=== PATIENT | female | born 1940 | race Caucasian/White ===

== ENCOUNTER 2016-10-08 05:40 | Inpatient (IN) | payer MEDICARE ==
[~2016-10-08] VITALS: Ht 165.1 cm; Wt 63.2 kg
[2016-10-08] VITALS (18 sets, daily range): BP systolic 84–117; BP diastolic 38–58; PULSE 74–95; RESP 6–18; O2SAT 94–100
[~2016-10-08 05:40] MED LIST: ASCO-294 PO; BETA1TAB19 PO; CALC600T12 PO; CHOL200047 PO; CIPR-231 PO; DOCU-41 PO; FERR-83 PO; FOLI1TAB18 PO; HYDR12.5 PO; OXYB15TA PO; PRED5DRO6 LEFT_EYE; ketorolac BOTH_EYES
[2016-10-08] MEDS ORDERED: CEFTRIAXONE IV ONE (06:00)
[2016-10-08] MEDS ORDERED: CeFAZolin 2 Gm/50 mL D5W IV Premix IV ONE (06:00)
[2016-10-08] MEDS ORDERED: D5W IV ONE (06:00)
[2016-10-08] MEDS ORDERED: metroNIDAZOLE Inj 1,000 MG in IV Premix 1 EACH IV ONE (06:00)
[2016-10-08] MEDS: Lactated Ringer's 1,000 ML IV SCH ×5 (06:03→22:41)
[2016-10-08] MEDS ORDERED: KETO1DRO LEFT_EYE (06:09)
--- NOTE | 2016-10-08 07:22 | PCM.HPANE ---
Patient Data Surgeon Admitting Provider: Attending Provider:Kevyn Clark MD Primary Care Physician:Gagan Vasquez MD Other Provider:Karime Win Anesthesia Reason for Visit Malignant Neoplasm Of Bladder Ht/WT & BMI Height (Feet): 5 Height (Inches): 5 Weight (Kilograms): 61.8 Body Mass Index 22.00 Allergies Coded Allergies: No Known Allergies (Unverified , 05/13/16) Past Anesthesia History Anesthesia History: Denies:: Anesthesia Reactions Diabetes History Hx Diabetes?: No Medications Hypertension Medication: Yes Home Meds Incl Beta Pedro: No Reported Medications Ketorolac Tromethamine/Pf (Acuvail 0.45% Ophth Solution)1 Each Droperette1 Gtt LEFT_EYE QID 10/08/16 Cholecalciferol (Vitamin D3) (Vitamin D3)2,000 Unit Capsule2,000 Unit PO DAILY 10/07/16 Ascorbate Calcium (Vitamin C)500 Mg Gitfxb081 Mg PO DAILY 10/07/16 Vit A/Vit C/Vit E/Zinc/Copper (Preservision Areds Tablet)1 Each Tablet2 Each PO BID 10/07/16 Prednisolone Acetate 5 Ml Drops.susp1 Gtt LEFT_EYE QID 10/07/16 Oxybutynin Chloride ER 15 Mg Tab.er.2415 Mg PO DAILY Ref 0 10/07/16 Hydrochlorothiazide 12.5 Mg Mbfmxwv39.5 Mg PO DAILY 30 Days Ref 0 10/07/16 Folic Acid 1 Mg Tablet1 Mg PO DAILY 30 Days 10/07/16 Ferrous Sulfate 325 Mg Bxtctz092 Mg PO TID 30 Days Ref 0 10/07/16 Docusate Sodium (Colace)100 Mg Lotignm091 Mg PO TID PRN For Constipation Ref 0 10/07/16 Ciprofloxacin (Cipro)500 Mg Ipasfg008 Mg PO BID Ref 0 for 7 day course 10/07/16 Calcium Carbonate (Calcium)600 Mg Xzllsm082 Mg PO DAILY 10/07/16 Discontinued Reported Medications [ketorolac] No Conflict CheckUnknown Dose BOTH_EYES 10/07/16 Calcium Carbonate (Tums)500 Mg Tab.hckd100 Mg PO PRN PRN heart burn 30 Days 05/25/16 Acetaminophen/Diphenhydramine (Tylenol Pm Ex-Strength Caplet)500 Mg-25 Mg Tablet1 Each PO DIRECTED PRN Headache 8/22/16 Hydrochlorothiazide 12.5 Mg Rjawug66.5 Mg PO DAILY Ref 0 03/26/16 Oxybutynin Chloride ER 15 Mg Tab.er.2415 Mg PO DAILY Ref 0 03/26/16 Discontinued Scripts Sodium Chloride (Nevin-128)15 Ml Drops15 Ml OP QID #1 Prov:Catrachito Whitfield MD 08/29/16 History History of ENT Problems?: Yes HEENT History: Positive for:: Glaucoma (using gtts) Hx of Heart Problems?: Yes Cardiovascular History: Positive for:: Heart Murmur (as child) Hypertension Irregular Heartbeat (left bundle branch block) Denies:: AICD Pacemaker Hx of Respiratory Problem?: No Respiratory History: Denies:: Asthma COPD Oxygen Administration Pneumonia Tuberculosis Use of C-PAP Machine Use of Inhalers / NEBS Neurological History: Denies:: CVA Dizziness Headaches Multiple Sclerosis Parkinson's Disease Seizures Hx of GI Problems?: No Gastrointestinal History: Denies:: Cirrhosis Gastroesphageal Reflux Gastrointestinal Bleeding Heartburn Hepatitis Hiatal Hernia Liver Disease Hx of Problems?: Yes Genitourinary History: Denies:: Kidney Stones Other Pertinent History: invasive bladder ca current admission problem, painless hematuria Female Hx: Denies:: Currently (post menopausal) Problems with Breasts? Skin History: Denies:: History Skin Disorders? (skin marked pre-op for ostomy at Wound care) Pressure Ulcers Hx Musculoskeletal Problems?: Yes Musculoskeletal History: Positive for:: Musculoskeletal Trauma (osteopenia) Denies:: Back Injury Fibromyalgia Joint Replacement Hx of Psycho/Social Problems?: No Psycho Social History: Denies:: Anxiety Hx Depression Hx Surgeries?: Yes (RIGHT WRIST) Hx Any Other Health Problems?: Yes Other History: Positive for:: Cancer (bladder current admission problem) Denies:: Thyroid Disease History Blood Transfusions: Positive for:: Accept Blood Products? Denies:: Blood Transfusions Hx Diabetes: No Hx Alcohol Use: NoHx Substance Use: No Smoking Status: Never Smoker Have You Smoked inLast 12 mo: No Stop/Bang Treated for Sleep Apnea?: No Do You Have a CPAP Machine?: No S-Snoring: Do You Snore Loudly: No T-Tired: feel tired, fatigued: No O-Obsered: Observed not breath: No P-Blood Pressure: treated: Yes B- Body Mass Index > 35 kg/m2: No A- Age over 50: Yes N- Neck Large Circumference: No G- Gender Male: No JUN Total Score: 2 JUN Risk Assessment: Low Risk, <3 Yes Risk Assessment Category Category 1A: Patient has history of documented sleep apnea, and HAS NOT received any narcotic, sedative or anesthesia administration during this stay. Category 1B: Patient has history of documented sleep apnea, and HAS received any narcotic , sedative or anesthesia administration during this stay Category 2: Patient has SUSPECTED Obstructive Sleep Apnea, and HAS received any narcotic , sedative or anesthesia administration during this stay. Category 3: Patient has SUSPECTED Obstructive Sleep Apnea and HAS NOT received narcotic, sedative or anesthesia administration during this stay. Category 4: Outpatient in Procedural Areas with known sleep apnea or who screen positive for High Risk via the STOP/BANG questionnaire. Exam Exam Vital Signs Vital Signs Date Time Temp Pulse Resp B/P Pulse Ox O2 Delivery O2 Flow Rate FiO2 10/08/16 06:17 37 81 18 117/50 96 Room Air General Appearance: Oriented X3 HEENT/AIRWAY: MP 2 Lungs: Normal Air Movement Heart: Regular Rate/Rhythm Meds/Labs/Diagnostics Admission Meds Current Medications Lactated Ringer's (Lr) 1,000 ml @ 120 mls/hr Q8H20M IV Last administered on t 06:03; Start 10/08/16 at 05:00; Stop 10/08/16 at 13:19 Plan Impression Patient chart reviewed, patient interviewed and anesthestic plan with risks, benefits, and alternatives discussed, and informed consent obtained. NPO Status: 10/07/16 ASA Physical Status: ASA3 Severe Disease Anesthetic Plan: Epidural Bene/Risks/Altern/Consents: Yes HP Complete Prior to Induction: Yes Carlton Castillo MD Oct 08, 2016 07:21
[2016-10-08] MEDS ORDERED: Atropine 1 mg/mL Inj IVPUSH PRN (07:35)
[2016-10-08] MEDS ORDERED: Ondansetron 2 mg/mL 2 mL Inj IVPUSH PRN ×2 (07:35→14:45)
[2016-10-08] MEDS ORDERED: fentaNYL-PF 50 mCg/mL 2 mL Inj IVPUSH PRN (07:35)
[2016-10-08] MEDS ORDERED: EPHEDrine Sulfate 50 mg/mL Inj IV PRN (07:35)
[2016-10-08] MEDS ORDERED: fentaNYL 2 mCg/mL-Bupivicaine 0.125% 100 mL Premix EPIDURAL ONE (07:53)
[2016-10-08] MEDS: GENTAMICIN IV SCH ×3 (08:30→18:59)
[2016-10-08] MEDS: DEXTROSE 5% IV SCH ×2 (08:30→18:31)
[2016-10-08] MEDS ORDERED: Propofol 10,000 mCg/mL 20 mL Inj ONE (10:06)
[2016-10-08] MEDS ORDERED: Ondansetron 2 mg/mL 2 mL Inj ONE (10:06)
[2016-10-08] MEDS ORDERED: Dexamethasone 4 mg/mL Inj ONE (10:06)
[2016-10-08] MEDS ORDERED: Phenylephrine 10,000 mCg/mL Inj ONE (10:06)
[2016-10-08] MEDS ORDERED: Lactated Ringer's 1,000 ML IV ONE ×4 (10:36→15:53)
[2016-10-08] MEDS ORDERED: Gelatin Sponge SZ 50 TOPICAL ONE (12:35)
--- NOTE | 2016-10-08 14:11 | PCM.ANEP1 ---
Post Anesthesia Phase 1 PACU Phase 1 Assessment Vital Signs Vital Signs Date Time Temp Pulse Resp B/P Pulse Ox O2 Delivery O2 Flow Rate FiO2 10/08/16 14:02 36.6 79 7 102/49 100 Simple Mask 10 10/08/16 06:17 37 81 18 117/50 96 Room Air Anesthetic Administered: GA, Epidural Level of Alertness: Sleepy, easy to arouse Pain: No Nausea or Vomiting: No Oxygen Delivery: Nasal Cannula Lungs: Normal Air Movement Carlton Castillo MD Oct 08, 2016 14:11
--- NOTE | 2016-10-08 14:12 | PCM.ANEP2 ---
Post Anesthesia Evaluation ASA/CMS Post Anesthesia VS in Patient's Normal Range?: Yes Resp Stable; Airway Patent?: Yes CV Function & Hydration Stable: Yes Mental Status Recovered?: Yes Pain control Satisfactory?: Yes N/V Control Satisfactory?: Yes Carlton Castillo MD Oct 08, 2016 14:12
--- NOTE | 2016-10-08 14:32 | PCM.SURGPO ---
Immediate Operative Note Date of Surgery: Oct 08, 2016 Pre Operative Diagnosis Muscle-invasive bladder CA Post Operative Diagnosis Muscle-invasive bladder CA Procedure Anterior pelvic exenteration (radical cystectomy, urethrectomy, total hysterectomy, B/L salpingo-oophorectomy), creation of ileal conduit urinary diversion, and B/L pelvic lymph node dissection Surgeon and Medical Staff Services Manager Surgeon: Kevyn Clark MD Assistants: Alfreda Almanza MD Findings No gross extravesical extension of bladder CA was seen. Anterior pelvic exenteration (radical cystectomy, urethrectomy, total hysterectomy, B/L salpingo -oophorectomy), creation of ileal conduit urinary diversion, and B/L pelvic lymph node dissection were performed. Complications There were no periprocedural complications identified. Surgical Specimen Removed: Yes Specimen sent to Pathology: Yes Surgical Specimen description: Bladder, urethra, uterus, cervix, B/L Fallopian tubes, B/L ovaries, anterior vaginal wall, B/L iliac and obturator pelvic lymph nodes, B/L distal ureteral margins Anesthetic Administered: GA, Epidural Grafts, Implants: Other (B/L urinary diversion stents, SAEID drain, NGT) Output, Estimated Blood Loss: 400 Blood Admin during surgery: No Additional information Patient to be transferred to [facility] when stable. Kevyn Clark MD Oct 08, 2016 14:32
[2016-10-08] MEDS ORDERED: Acetaminophen IV 1,000 MG in IV Premix 1 EACH IV PRN (14:45)
[2016-10-08] MEDS ORDERED: MetoCLOpramide 5 mg/mL 2 mL Inj IVPUSH PRN (14:45)
[2016-10-08] MEDS ORDERED: 0.9% Sodium Chloride 500 ML IV ONE (14:59)
[2016-10-08] MEDS: Sodium Chloride LOK Flush 10 mL Syringe IVFLUSH SCH (18:32)
[2016-10-08] MEDS: SODIUM CHLORIDE 0.9% IV SCH (18:59)
--- NOTE | 2016-10-08 19:18 | PCM.CHPMED ---
Subjective Date of Service: Oct 08, 2016 Primary Physician: Admitting Physician: Kevyn Clark MD Primary Care Physician: Gagan Vasquez MD Attending Physician: Kevyn Clark MD Chief Complaint: Chief Complaint: Consulted for anemia, hypertension, glaucoma History of Present Illness: This patient is a very pleasant 76-year-old female with a history of bladder cancer diagnosed within this year, left bundle branch block, hypertension, osteopenia and glaucoma. She was diagnosed with bladder cancer around February of this year after having painless hematuria since October 2015. She was seen by Dr. 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 She was referred to oncology and underwent 4 months of chemotherapy with plans for eventual radical cystectomy and hysterectomy which was performed earlier today by Dr. Clark with no reported complications. She is on iron for iron deficiency anemia as well as a component of anemia of chronic disease. She just arrived to her room from the PACU and there are plans for one unit blood transfusion after repeat H&H showed decreasing hemoglobin. Currently the patient feels well, pain is controlled. She is on a GAS METER READER pump. She denies any headaches dizziness vision changes. She has recently had an upper respiratory infection with runny nose and cough. She denies any chest pain. She did have some minor shortness of breath after surgery. Postoperative abdominal pain as expected, no rashes or lesions. NG tube is in place Review of Systems: As in history of present illness otherwise 12 point review of systems negative PMH Past Medical History Bladder cancer, known LBBB, glaucoma, She is AB0. She has never had a transfusion. She has had one hospitalization with fracture of the right wrist in 2001. She required pinning and screws. Hypertension, anxiety and osteopenia. Hx Diabetes: No Surgical History Wrist fracture Home Medications Vitamin C, calcium, vitamin D, Colace, iron, folic acid, hydrochlorothiazide, oxybutynin, prednisolone eyedrops, MVI Allergies: Coded Allergies: No Known Allergies (Unverified , 05/13/16) Family History Family History She has 3 daughters who are doing well, one brother of cancer and another from an aneurysm. Father at age 90 of old age mother of pneumonia and leukemia Social History Hx Alcohol Use: NoHx Substance Use: No Smoking Status: Never Smoker Exam Vital Signs Vital Sign - Last Date Time Temp Pulse Resp B/P Pulse Ox O2 Delivery O2 Flow Rate FiO2 10/08/16 17:04 36.2 90 16 88/49 96 Room Air 10/08/16 14:45 10 Additional Information: General: Alert, Oriented X3, pale appearing. NAD Head: Normocephalic, atraumatic . Eyes: LASHA, EOMI, no scleral Icterus Oropharynx: pink moist oral mucosa, NG tube in place Neck: supple, trachea midline, no adenopathy Chest: clear to auscultation B/L, no wheezing rales or rhonchi Heart: Regular rate and rhythm. Normal S1, S2, 2/6 systolic ejection murmur noted Abdomen: soft, bandaged. Bowel sounds are slightly hypoactive. No guarding or rebound. Extremities: no cyanosis, clubbing or edema. No acute joint inflammation. Skin: Normal skin turgor, no nonsurgical wounds or rashes noted Neuro: Cranial nerves II-XII intact, no focal findings. Psych: normal judgement and insight. Lab and Diagnostics Result Diagram: 10/08/16 1515 10/08/16 1515 Assessment & Plan Assessment This is a 76-year-old female status post radical cystectomy and hysterectomy done 10/08/[address] Clark for bladder cancer. She sees Dr. Kay for oncology and has received 4 months of chemotherapy which has been discontinued at this point. The hospital service was consulted for anemia, hypertension, glaucoma. Anemia: -Multifactorial including acute blood loss anemia, anemia of chronic disease, iron deficiency anemia. -I agree with transfusion of one unit red blood cells -Continue iron and vitamin C supplementation when the patient can take by mouth. -Recheck CBC in the morning Bladder cancer: -Status post radical cystectomy and hysterectomy 10/08/2016 -Status post [address] Kay. -Pain control per surgery. Currently on a GAS METER READER -Urostomy education Hypertension: -She is currently hypotensive -She takes hydrochlorothiazide at home. Will hold for now Glaucoma: -Continue home medications, presumed stable Other stable conditions include known LBBB, osteopenia, heart murmur CODE STATUS: Full code DVT prophylaxis: Per surgery, currently held due to recent surgery and anemia. Disposition: Pending hospital course, independent of ADLs at baseline. Thank you for allowing us to participate in the care of this pleasant patient. We will continue to follow along with you. Problems: Candido Harris DO Oct 08, 2016 19:18
[2016-10-08] MEDS ORDERED: 0.9% Sodium Chloride 250 ML ONE (21:18)
[2016-10-08] MEDS: metroNIDAZOLE Inj 500 MG in IV Premix 1 EACH IV SCH ×2 (21:41→21:42)
[2016-10-08] MEDS: PrednisoLONE 1% 5 mL Ophthalmic Suspension LEFT_EYE SCH (21:59)
[2016-10-08] MEDS: KETOROLAC 0.5% LEFT_EYE SCH (21:59)
[2016-10-09] VITALS (9 sets, daily range): BP systolic 100–114; BP diastolic 45–61; PULSE 85–99; RESP 14–20; O2SAT 92–96
[2016-10-09] MEDS: Sodium Chloride LOK Flush 10 mL Syringe IVFLUSH SCH ×3 (00:24→16:30)
[2016-10-09] MEDS: GENTAMICIN IV SCH (02:12)
[2016-10-09] MEDS: SODIUM CHLORIDE 0.9% IV SCH (02:12)
[2016-10-09] MEDS: Lactated Ringer's 1,000 ML IV SCH ×2 (04:54→14:38)
[2016-10-09] MEDS: metroNIDAZOLE Inj 500 MG in IV Premix 1 EACH IV SCH (05:48)
[2016-10-09 06:02] LABS: Mean Corpuscular Hemoglobin 29.5 pg (27.0-35.0); Mean Corpuscular Volume 91.7 fL (81-100)
[2016-10-09] MEDS: KETOROLAC 0.5% LEFT_EYE SCH ×4 (06:29→22:38)
[2016-10-09] MEDS: PrednisoLONE 1% 5 mL Ophthalmic Suspension LEFT_EYE SCH ×4 (06:36→22:38)
--- NOTE | 2016-10-09 08:15 | PCM.PNSURG ---
Subjective Date of Service: Oct 09, 2016 Date of Service: Oct 09, 2016 Subjective: Patient reports occasional mild abdominal incisional pain (well-controlled by epidural LINE ORDERING CLINICIAN), no nausea, no vomiting, no dizziness or light-headedness, has not passed flatus or had a BM yet. Patient has not been OOB yet. Patient has not had hypotension since epidural rate was decreased last night. Patient received 1U pRBC last night. Objective Vital Sign- Last 8 Hours Date Time Temp Pulse Resp B/P Pulse Ox O2 Delivery O2 Flow Rate FiO2 10/09/16 05:22 36.7 88 16 109/61 95 Room Air 10/09/16 04:04 15 95 10/09/16 02:52 36.7 85 16 110/58 10/09/16 00:35 36.7 86 16 100/50 96 Room Air Intake and Output- Last 8 Hour 10/09/16 Cumulative From/Thru 07:00 10/07/16 11:29 - 10/09/16 06:45 Intake Total 1790 ml 4795 ml Output Total 855 ml 1830 ml Balance 935 ml 2965 ml Intake Oral 0 ml 0 ml IV Total 1490 ml 4495 ml Packed Cells 300 ml 300 ml Output Urine Total 350 ml 525 ml Gastric Drainage Total 250 ml 250 ml Drainage Total 255 ml 255 ml Estimated Blood Loss 800 ml Ileal conduit urine output: 350ml last 8hr. shift SAEID drain output: 195ml last 8hr. shift NGT output: 250ml last 8hr. shift General: Alert, Oriented X3, Cooperative, No Acute Distress Neck: Supple Lungs: Normal Air Movement Abdomen: Soft, Appropriately tender, Non-distended, Other (no rebound or guarding) SURGICAL WOUND : Wound Location/Description Dressing clean/dry/intact. Ileal conduit stoma pink, healthy, viable, with urinary diversion stents in bag , draining dark red urine. Wound Drainage Type: SAEID Drain #1 (in place, draining serosang. drainage) Extremities: Other (+SCD boots) Neuro: Normal Speech, Sensation Intact Result Diagram: 10/09/1644110/09/16441 Assessment & Plan Impression POD #1, s/p anterior pelvic exenteration (radical cystectomy, urethrectomy, total hysterectomy, B/L salpingo-oophorectomy), creation of ileal conduit urinary diversion, and B/L pelvic lymph node dissection, afebrile, hemodynamically stable, with resolved hypotension after epidural rate decreased last night, with pain well-controlled by epidural LINE ORDERING CLINICIAN, with good urine output, with labs this AM showing Hct appropriately increased from 21.4 to 24.2 after 1U pRBC transfusion last night and Cr mildly increased to 1.21 Problems: (1) Bladder cancer ICD Code: C67.9 Plan Continue NPO (except for ice chips and sips of water) Continue NGT for now Continue SAEID drain to self-suction Continue IVF Continue epidural LINE ORDERING CLINICIAN, as per anesthesia Encourage incentive spirometry 10x/hr. and cough and deep breathing Q2h while awake Encourage OOB to chair and ambulation with assistance Continue SCD boots Physical therapy consult requested Wound care nursing consult requested (for urostomy care and teaching) Check labs (CBC, BMP) in AM Hospitalist consultation from Dr. Harris appreciated Dr. Almanza (who is on-call) to follow patient over the weekend VTE Prophylaxis: SCDs Resuscitation Status: CPR: Attempt Resuscitation Kevyn Clark MD Oct 09, 2016 08:15
[2016-10-09] MEDS: fentaNYL 2 mCg/mL-Bupiv 0.125% 250 ML in IV Premix 1 EACH EPIDURAL SCH (10:35)
--- NOTE | 2016-10-09 15:07 | PROG NOTE ---
[address] [address] PROGRESS NOTE PATIENT: MACKENZIE EASTMAN : 1940 MR#: [id number] ADMIT: 10/08/2016 JOB ID: [id number] DATE: 10/09/2016 EPIDURAL MANAGEMENT NOTE: SUBJECTIVE: The patient is postop day one from cystectomy and ileal loop diversion. She has a thoracic epidural in place. Apparently overnight the patient had some hypotension. The on-call anesthesiologist was contacted and instructed the RN to decrease epidural rate from 6 to 4. This morning the patient's blood pressure has stabilized. Her epidural is running at a rate of 4 with a demand dose of 1 mL every 30 minutes. The patient appears comfortable and states that she has no incisional pain at rest and only some mild pain along with movement for which she is pushing the demand dose button. She states she has some burning sensation in her upper chest area which is likely due to acid reflux. The patient remains n.p.o. She states that she is satisfied with current pain management. OBJECTIVE: The epidural site per recent RN inspection is clean, dry, and intact, with a little bit of old blood. The infusion is, once again, running at a rate of 4 mL with a 1 mL demand dose. Vital signs are currently within normal limits. IMPRESSION AND PLAN: A 76-year-old female postop day one from cystectomy and ileal loop diversion with a thoracic epidural that appears to be functioning well to control her postoperative pain. Given that she complains of no incisional pain at the moment, I will leave the settings as they are. We will continue to monitor her vital signs to make sure that they remain within normal limits. We will consider weaning the epidural once the patient is capable of taking p.o. without difficulty.
--- NOTE | 2016-10-09 18:16 | PCM.PNMED ---
Subjective Date of Service Oct 09, 2016 Subjective Patient's pain is tolerable, no nausea or vomiting. NG tube in place with dark output. Appropriate response to transfusion. She denies any chest pain or shortness of breath. She has had some reflux. Exam Vital Signs Vital Sign - Last Date Time Temp Pulse Resp B/P Pulse Ox O2 Delivery O2 Flow Rate FiO2 10/09/16 09:55 36.7 93 16 114/58 94 Non-Rebreather 10/08/16 14:45 10 Intake and Output 10/08/16 10/08/16 10/09/16 Cumulative From/Thru 15:00 23:00 07:00 10/07/16 11:29 - 10/09/16 06:45 Intake Total 2955 ml 50 ml 1790 ml 4795 ml Output Total 900 ml 75 ml 855 ml 1830 ml Balance 2055 ml -25 ml 935 ml 2965 ml Intake Oral 0 ml 0 ml 0 ml IV Total 2955 ml 50 ml 1490 ml 4495 ml Packed Cells 300 ml 300 ml Output Urine Total 100 ml 75 ml 350 ml 525 ml Gastric Drainage Total 250 ml 250 ml Drainage Total 255 ml 255 ml Estimated Blood Loss 800 ml 800 ml Exam General: Alert, Oriented X3, NAD, Head: Normocephalic, atraumatic Eyes: LASHA, EOMI, no scleral Icterus Chest: clear to auscultation B/L, no wheezing rales or rhonchi Heart: Regular rate and rhythm. Normal S1-S2, 2/6 systolic murmur noted Abdomen: soft, mild tenderness to palpation. Bowel sounds are hypoactive. No guarding or rebound. Extremities: no cyanosis, clubbing or edema. IVs and Medications Medications Reviewed: Medications were reviewed in detail Lab and Diagnostics Result Diagram: 10/09/162 10/09/16 0442 Assessment & Plan This is a 76-year-old female status post radical cystectomy and hysterectomy done 10/08/[address] Clark for bladder cancer. She sees Dr. Kay for oncology and has received 4 months of chemotherapy which has been discontinued at this point. The hospital service was consulted for anemia, hypertension, glaucoma. Anemia: -Multifactorial including acute blood loss anemia, anemia of chronic disease, iron deficiency anemia. -She has had 1 transfusion 10/08/2016 -Continue iron and vitamin C supplementation when the patient can take by mouth. -Follow blood levels closely. -NG output concerning for bleeding. Bladder cancer: -on 10/08/2016 she had a radical cystectomy, urethrectomy, total hysterectomy, B /L salpingo-oophorectomy, creation of ileal conduit urinary diversion, and B/L pelvic lymph node dissection. No reported complications -Status post [address] Kay. -Pain control per surgery. Currently on a ABSTRACTOR -Urostomy education Hypertension: -hypotensive resolved. -She takes hydrochlorothiazide at home. Will hold for now Glaucoma: -Continue home medications, presumed stable Other stable conditions include known LBBB, osteopenia, heart murmur CODE STATUS: Full code DVT prophylaxis: Per surgery, currently held due to recent surgery and anemia. Disposition: Pending hospital course, independent of ADLs at baseline. VTE Mechanical Devices: Intermittant Pneumatic CD Candido Harris DO Oct 09, 2016 18:16
[2016-10-09] MEDS: Pantoprazole 4 mg/mL 10 mL Inj IVPUSH SCH (18:32)
[2016-10-09] MEDS: Dextrose 5% 0.45% NaCl 1,000 ML IV SCH (22:44)
[2016-10-10] VITALS (7 sets, daily range): BP systolic 114–144; BP diastolic 59–70; PULSE 87–90; RESP 16–18; O2SAT 92–95
[2016-10-10] MEDS: Sodium Chloride LOK Flush 10 mL Syringe IVFLUSH SCH ×3 (00:30→17:37)
[2016-10-10] MEDS: fentaNYL 2 mCg/mL-Bupiv 0.125% 250 ML in IV Premix 1 EACH EPIDURAL SCH (04:46)
--- NOTE | 2016-10-10 05:38 | OP ---
[address] [address] OPERATIVE REPORT PATIENT: MACKENZIE EASTMAN : 1940 MR#: [id number] ADMIT: 10/08/2016 JOB ID: [id number] DATE OF SURGERY: 10/08/2016 PREOPERATIVE DIAGNOSIS(ES): Muscle-invasive bladder cancer. POSTOPERATIVE DIAGNOSIS(ES): Muscle-invasive bladder cancer. PROCEDURE: Anterior pelvic exenteration (radical cystectomy, urethrectomy, total hysterectomy, bilateral salpingo-oophorectomy), creation of ileal conduit urinary diversion, and bilateral pelvic lymph node dissection. SURGEON: Kevyn Clark MD. CARGOMAN: Alfreda Almanza MD. ANESTHESIA: General endotracheal anesthesia and epidural anesthesia. INTRAVENOUS FLUIDS: 2600 mL. ESTIMATED BLOOD LOSS: 400 mL. SPECIMENS: Bladder, urethra, uterus, cervix, bilateral fallopian tubes, bilateral ovaries, anterior vaginal wall, bilateral iliac and obturator pelvic lymph nodes, bilateral distal ureteral margins. DRAINS: Bilateral urinary diversion stents, SAEID drain, nasogastric tube. COMPLICATIONS: None. CONDITION: Stable. FINDINGS: No gross extravesical extension of bladder cancer was seen. Anterior pelvic exenteration (radical cystectomy, urethrectomy, total hysterectomy, bilateral salpingo-oophorectomy), creation of ileal conduit urinary diversion and bilateral pelvic lymph node dissection were performed. INDICATIONS: The patient is a 76-year-old female with muscle-invasive bladder cancer, status post completion of neoadjuvant chemotherapy. The patient now presents for anterior pelvic exenteration (including radical cystectomy, urethrectomy, total hysterectomy and bilateral salpingo-oophorectomy), bilateral pelvic lymph node dissection and creation of ileal conduit urinary diversion. Of note, the skilled assistance of Dr. Alfreda Almanza was necessary for the successful completion of the case. He was essential for proper visualization and for wound closure during the case. DESCRIPTION OF PROCEDURE: The patient was brought to the operating room and placed supine on the operating room table. The patient was given ceftriaxone, gentamicin and Flagyl IV antibiotics. Sequential compression device boots were placed. General endotracheal anesthesia and epidural anesthesia were administered. A nasogastric tube was placed by Anesthesia. Arterial line was placed by Anesthesia. All extremities and pressure points were well padded. The patient was placed in dorsal lithotomy position. The patient was prepped and draped in a standard surgical fashion, specifically the abdomen, bilateral flank, groin, perineum, bilateral thighs and vagina were shaved, prepped and draped in a standard surgical fashion. A 22-Guatem[place] Jensen catheter was placed under sterile conditions. Jensen catheter balloon was inflated with 10 mL sterile water. Jensen catheter was placed to straight drainage. A midline abdominal incision was made sharply with a #10 blade just to the left of the umbilicus. The incision was brought from the pubic symphysis and to the left of the umbilicus to about 2-3 cm superior to the level of the umbilicus. The incision was made sharply through the skin and subcutaneous tissue. The incision was carried through Chelsea's fascia down to rectus fascia using Bovie electrocautery. The rectus fascia was incised in the midline. Then, the muscle layer was split and the peritoneum was identified. Hemostasis was achieved using Bovie electrocautery. The peritoneal cavity was entered sharply. The urachus was dissected free. The urachus was ligated and divided and then clamped. Then, the peritoneal contents were inspected and there was no obvious evidence of metastatic spread. Palpation was performed and no occult metastatic disease was palpated in the abdomen or pelvis. The peritoneum lateral to the bladder was incised. The distal portions of the left and right ureters were identified and dissected free, and the distal margin of the left distal ureter was sent for frozen section, which returned negative. The ureter had been ligated and divided near the bladder. An identical procedure was performed on the right side. The distal margin of the right distal ureter was sent for frozen section, which returned negative. The ureter had been ligated and divided near the bladder. Thus, the distal margins of both left and right distal ureters were sent to Pathology for frozen section and both came back negative on frozen section. The Bookwalter retractor had been placed upon entrance into the peritoneal cavity. The bilateral ovarian vessels were identified, ligated and divided. The urachus had been dissected free and was clamped, and the bladder was dissected in a "V" fashion. The bowel was packed superiorly. Bilateral salpingo-oophorectomy was performed by dissecting out bilateral ovaries and bilateral fallopian tubes. The bilateral ovarian vessels had already been ligated and divided using LigaSure. The bladder was dissected off the peritoneal reflection. Bilateral superior vesical pedicles were ligated and divided using endovascular ANNAMARIE stapler. Bilateral inferior vesical pedicles were ligated and divided using endovascular ANNAMARIE stapler. The rectosigmoid was retracted posteriorly and superiorly. An incision was created in the cul-de-sac, and the vaginal wall was mobilized off of the rectosigmoid colon. A sponge stick was placed in the vagina to facilitate identification of the vagina. Bilateral cardinal ligaments were ligated and divided using LigaSure. Cautery was used to incise the vagina. The posterior dissection was completed, and the anterior dissection was begun. Endopelvic fascia was incised. The pubourethral suspensory ligaments were divided. The dorsal vein of the clitoris was ligated and divided. The urethra was dissected from under the dorsal vein, so that the only remaining attachments of the specimen were the urethral meatus and a small portion of the vagina. Then, a retractor was used to split the labia. The labia was split and the urethral meatus was circumscribed using Bovie electrocautery to complete the urethrectomy. The remaining portion of the vagina was incised, and the distal urethra was dissected out. The uterus, anterior vagina, cervix, bilateral fallopian tubes and bilateral ovaries were taken with the specimen with the bladder and the urethra. The vaginal flap was closed in a longitudinal fashion using a 2-0 Vicryl suture in a running fashion. The specimen was sent to Pathology for permanent specimen. Of note, the Jensen catheter had been removed prior to removal of the specimen at the point of dissection of the urethra. Excellent hemostasis was achieved using Bovie electrocautery. There was no evidence for rectal or vascular injuries. Attention was then paid to obturator and iliac pelvic lymph nodes on the left side where pelvic lymphadenectomy was performed from the level of the obturator ring proximally to the bifurcation of the common iliac arteries. There was no obvious metastatic spread seen. Lymphadenectomy was performed using clips. The obturator nerve and vessels were easily seen and preserved. An identical procedure was performed on the right side with no evidence of obvious metastatic spread seen. Left and right obturator and iliac pelvic lymph nodes were sent to Pathology for permanent specimen. Attention was then paid towards the loop of ileum. Approximately 15 cm from the ileocecal valve a portion of ileum was dissected and marked with 3-0 silk sutures. There appeared to be a nice arcade of blood supply to this portion of the bowel. An approximately 15 cm segment of ileal conduit was measured, and the mesentery of the distal and proximal portions of the bowel segment was dissected free more on the distal portion to allow it to come through the urostomy tract and through the abdominal cavity later on. The bowel anastomosis was performed using ANNAMARIE and TA staplers with a typical [id number] anastomosis. The crotch of the bowel anastomosis was secured using 2-0 silk sutures. There appeared to be a nice wide-open bowel anastomosis and the mesenteric defect was closed using 2-0 silk sutures. There appeared to be good blood supply to the ileal conduit and the bowel. The staple line of the stoma end of the ileal conduit was removed using Perkins scissors. The loop was thoroughly irrigated prior to closure of the loop and there appeared to be good hemostasis and an excellent blood supply. The ileal conduit appeared to be healthy and pink. The left ureter was brought underneath the sigmoid colon and appeared to have a nice gentle curve to it and was not twisted. The tip of the left ureter was resected to freshen the tip and partially spatulated using a Oliver scissors. The bowel anastomosis to the left ureter was performed using a running 4-0 Vicryl suture. Prior to completion of the closure, a single-J urinary diversion stent was placed up the left ureter and into the kidney on the left side and appeared to be well placed. This was performed and then the guidewire was removed. This was performed through the loop and an identical procedure was performed on the right side. The left ureter was placed on the left side of the loop and the right ureter was placed on the right side of the loop approximately 1 inch from the butt end of the loop. There was good irrigation of fluid through the stents and the stents appeared to be in good position. The wound was thoroughly irrigated using sterile water irrigation and had been thoroughly irrigated several times earlier during the case including after the specimen was removed. Good hemostasis was seen. Some areas of bleeding were taken care of using [id number] 2-0 Vicryl sutures and Gelfoam was placed in the pelvic fossa. The Bookwalter retractor was removed. The bowel was replaced into the peritoneal cavity. The omentum was replaced. The bowel was seen to be well preserved. Then, the urostomy site was identified in the area where it was previously marked by the urostomy nurse preoperatively. A 1-inch opening was made in a round fashion with a #10 blade in the skin for placement of the ileal conduit. The stoma appeared to be in adequate position. The fat and the surrounding tissue were removed using Bovie electrocautery. A cruciate incision was made in the fascia approximately 1 inch in size. The fascia was then opened from the inside and the ileal conduit and bilateral stents were pulled through. The ileal conduit appeared again to be healthy in appearance and nice and pink with a good blood supply. The fascia of the conduit tract was closed using interrupted 2-0 Vicryl sutures and several separate 2-0 Vicryl sutures were used to secure the conduit, anchoring it to the fascia to prevent any herniation in the future. Also, the conduit mesentery appeared to be nice and healthy in appearance without being twisted. The bowel anastomosis was anterior to the conduit and appeared to be in a good position as well. The conduit was everted using everting sutures of 2-0 Vicryl. Then, the approximation of the conduit to the skin was made using 3-0 Vicryl simple interrupted sutures. Bilateral urinary diversion stents were secured to the stoma using chromic sutures. A SAEID drain was placed into the pelvis on the left side and was secured to the skin using a 2-0 nylon drain suture. The rectus fascia was closed using 0 loop PDS sutures x2 in a running fashion from each corner toward the middle and then tied to each other. Chelsea's fascia was reapproximated in a running fashion using 3-0 chromic suture. The skin was reapproximated using jacy. The skin was cleaned and dried. A urostomy appliance was placed on the ileal conduit stoma with bilateral urinary diversion stents placed into the bag. A saline-soaked vaginal pack was placed. Sterile dressings were applied. The SAEID drain was placed to self suction. The nasogastric tube was left in place. The patient was awakened from general anesthesia and extubated in the operating room. The patient was transferred to the recovery room in stable condition. The patient tolerated the procedure well. MADALYN
[2016-10-10 05:44] LABS: Mean Corpuscular Hemoglobin 29.4 pg (27.0-35.0); Mean Corpuscular Volume 93.4 fL (81-100)
[2016-10-10] MEDS ORDERED: 0.9% Sodium Chloride 250 ML IV ONE (07:50)
[2016-10-10] MEDS: Dextrose 5% 0.45% NaCl 1,000 ML IV SCH ×3 (09:07→19:51)
[2016-10-10] MEDS: Pantoprazole 4 mg/mL 10 mL Inj IVPUSH SCH ×2 (09:12→17:37)
[2016-10-10] MEDS: PrednisoLONE 1% 5 mL Ophthalmic Suspension LEFT_EYE SCH ×4 (09:13→22:31)
[2016-10-10] MEDS: KETOROLAC 0.5% LEFT_EYE SCH ×4 (09:13→22:30)
--- NOTE | 2016-10-10 09:19 | PROG NOTE ---
[address] [address] PROGRESS NOTE PATIENT: MACKENZIE EASTMAN : 1940 MR#: [id number] ADMIT: 10/08/2016 JOB ID: [id number] DATE: SUBJECTIVE: Postop day two, anterior exenteration and ileal conduit diversion. Vital signs are stable. The patient is afebrile. Pain control is good. The nasogastric tube is draining dark brown fluid. Urine is blood tinged. Aditya-Acuña drain is serosanguineous. Urine output is adequate. LABORATORY: Electrolytes within normal limits. Hemoglobin is again depressed with a hematocrit of 21.3. I will plan on giving her an additional 2 units of packed red blood cells today. PHYSICAL EXAMINATION: On examination, chest is clear. The abdomen is soft. No bowel sounds are present. Her stoma appears pink and healthy. Incision is clean and dry. IMPRESSION: Good progress postop. PLAN: Slow ambulation, n.p.o. until passing gas.
--- NOTE | 2016-10-10 14:42 | PROG NOTE ---
[address] [address] PROGRESS NOTE PATIENT: MACKENZIE EASTMAN : 1940 MR#: [id number] ADMIT: 10/08/2016 JOB ID: [id number] DATE: 10/10/2016 SUBJECTIVE: A 76-year-old female, postop day two, status post diverting loop ileostomy with anterior pelvic exoneration. The patient currently has a thoracic epidural in place running bupivacaine 0.125% with 2 mcg/mL of fentanyl at a rate of 4 mL an hour. She has a bolus dose of 1 mg which she can utilize every 30 minutes. On a visual analog scale, she complained of 1/10 generalized abdominal pain and is currently happy with her pain control. She had not passed gas. She has an NG tube in place and thus remains n.p.o. She has not ambulated although she has sat up at bedside. She was receiving blood this morning at her bedside for her anemia. OBJECTIVE: Patient remained afebrile with vital signs stable. White count today was 11.7, hemoglobin was 6.7, and platelets were 257. She is not currently on any anticoagulants. Her epidural site was clean, dry and intact and she has no focal neurological deficits. ASSESSMENT AND PLAN: The patient is currently recovering well given her age and the extent of the surgery. She is having excellent postoperative pain control and we will continue her epidural unchanged and continue assessing her daily.
--- NOTE | 2016-10-10 17:09 | PCM.PNMED ---
Subjective Date of Service Oct 10, 2016 Subjective Feeling a little better today. She has family present at bedside. No chest pain, nausea vomiting. NG tube still in place. No flatulence or bowel movement. Exam Vital Signs Vital Sign - Last Date Time Temp Pulse Resp B/P Pulse Ox O2 Delivery O2 Flow Rate FiO2 10/10/16 13:31 37.1 90 16 138/70 10/10/16 05:42 93 Room Air 10/08/16 14:45 10 Intake and Output 10/09/16 10/09/16 10/10/16 Cumulative From/Thru 15:00 23:00 07:00 10/07/16 11:29 - 10/10/16 06:44 Intake Total 1488 ml 0 ml 6283 ml Output Total 940 ml 810 ml 3580 ml Balance 548 ml -810 ml 2703 ml Intake Oral 60 ml 0 ml 60 ml IV Total 1428 ml 5923 ml Packed Cells 300 ml Output Urine Total 525 ml Gastric Drainage Total 450 ml 150 ml 850 ml Drainage Total 490 ml 660 ml 1405 ml Estimated Blood Loss 800 ml Exam General: Alert, Oriented X3, NAD Head: Normocephalic, atraumatic Eyes: LASHA, EOMI, no scleral Icterus Chest: clear to auscultation B/L, no wheezing rales or rhonchi Heart: Regular rate and rhythm. Normal S1, S2, 2/6 systolic ejection murmur Abdomen: soft, mild tenderness to palpation, bowel sounds are hypoactive. No guarding or rebound. Extremities: no cyanosis, clubbing or edema. IVs and Medications Medications Reviewed: Medications were reviewed in detail Lab and Diagnostics Result Diagram: 10/10/16 1147 10/10/16 0444 Assessment & Plan This is a 76-year-old female status post radical cystectomy and hysterectomy done 10/08/[address] Clark for bladder cancer. She sees Dr. Kay for oncology and has received 4 months of chemotherapy which has been discontinued at this point. The hospital service was consulted for anemia, hypertension, glaucoma. Anemia: -Multifactorial including acute blood loss anemia, anemia of chronic disease, iron deficiency anemia. -She has had 1 transfusion 10/08/2016, will transfuse another unit today. -Continue iron and vitamin C supplementation when the patient can take by mouth. -Follow blood levels closely. -NG output concerning for bleeding. At some point may need to consider an EGD. Continue Protonix Bladder cancer: -on 10/08/2016 she had a radical cystectomy, urethrectomy, total hysterectomy, B /L salpingo-oophorectomy, creation of ileal conduit urinary diversion, and B/L pelvic lymph node dissection. No reported complications -Status post [address] Kay. -Pain control per surgery. Currently on a IDENTITY ACCESS MANAGEMENT ARCHITECT -Urostomy education Hypertension: -hypotensive resolved. -She takes hydrochlorothiazide at home. Will hold for now Glaucoma: -Continue home medications, presumed stable Other stable conditions include known LBBB, osteopenia, heart murmur CODE STATUS: Full code DVT prophylaxis: Per surgery, currently held due to recent surgery and anemia. Disposition: Pending hospital course, independent of ADLs at baseline. VTE Prophylaxis: SCDs VTE Mechanical Devices: Intermittant Pneumatic CD Resuscitation Status: CPR: Attempt Resuscitation Candido Harris DO Oct 10, 2016 17:09
[2016-10-11] VITALS (8 sets, daily range): BP systolic 143–156; BP diastolic 48–70; PULSE 80–86; RESP 16–18; O2SAT 91–94
[2016-10-11] MEDS: Sodium Chloride LOK Flush 10 mL Syringe IVFLUSH SCH ×3 (00:30→16:24)
[2016-10-11] MEDS: fentaNYL 2 mCg/mL-Bupiv 0.125% 250 ML in IV Premix 1 EACH EPIDURAL SCH (03:43)
[2016-10-11] MEDS: Dextrose 5% 0.45% NaCl 1,000 ML IV SCH ×3 (03:48→16:46)
[2016-10-11 05:46] LABS: Mean Corpuscular Hemoglobin 29.1 pg (27.0-35.0)
[2016-10-11] MEDS: PrednisoLONE 1% 5 mL Ophthalmic Suspension LEFT_EYE SCH ×4 (06:38→22:12)
[2016-10-11] MEDS: KETOROLAC 0.5% LEFT_EYE SCH ×4 (06:42→22:14)
[2016-10-11] MEDS: Pantoprazole 4 mg/mL 10 mL Inj IVPUSH SCH ×2 (07:33→16:24)
[2016-10-11] MEDS ORDERED: KCl 40 mEq/D5W 500 mL 40 MEQ in IV Premix 500 EACH IV ONE (07:35)
--- NOTE | 2016-10-11 12:49 | PROG NOTE ---
[address] [address] PROGRESS NOTE PATIENT: MACKENZIE EASTMAN : 1940 MR#: [id number] ADMIT: 10/08/2016 JOB ID: [id number] DATE: 10/11/2016 SUBJECTIVE: The patient is postop day three anterior exenteration with ileal conduit diversion. The patient received 2 units of packed red blood cells yesterday and her hematocrit has come up nicely to 26.6. Chemistry: Potassium has dropped to 3.2. I will add some KCl to her IV. Creatinine is within normal limits. OBJECTIVE: On examination, chest is clear. Abdomen is soft. Wound is dry. Still appears healthy. Urine output good. Color is clearing. Urine output remains good at 1700 mL total yesterday. SAEID drainage is acceptable at 160 mL. NG suction is diminishing, still dark brown. Daily weights are pending. IMPRESSION: Postoperative day three status post anterior exenteration with ileal conduit diversion. Good progress.
--- NOTE | 2016-10-11 15:56 | PCM.PNMED ---
Subjective Date of Service Oct 11, 2016 Subjective denies any new issues/complaints. no abd pain Exam Vital Signs Vital Sign - Last Date Time Temp Pulse Resp B/P Pulse Ox O2 Delivery O2 Flow Rate FiO2 10/11/16 14:55 36.7 84 16 152/48 91 Room Air 10/08/16 14:45 10 Intake and Output 10/10/16 10/10/16 10/11/16 Cumulative From/Thru 15:00 23:00 07:00 10/07/16 11:29 - 10/11/16 06:37 Intake Total 375 ml 0 ml 1119 ml 7777 ml Output Total 1350 ml 1000 ml 5930 ml Balance 375 ml -1350 ml 119 ml 1847 ml Intake Oral 0 ml 0 ml 60 ml IV Total 35 ml 1119 ml 7077 ml Packed Cells 340 ml 640 ml Output Urine Total 0 ml 525 ml Gastric Drainage Total 125 ml 0 ml 975 ml Drainage Total 1225 ml 1000 ml 3630 ml Estimated Blood Loss 800 ml General: Alert, Cooperative, No Acute Distress Eyes: Scleral Anicteric Mouth: Mucous Membr Moist/[place] Neck: Supple Chest & Lungs: Chest Wall Normal, Clear to auscultation & percussion Cardiovascular: Regular Rate/Rhythm Abdomen: Non-tender, Non-distended, Soft, Other (ng tube in place) Extremities: No cyanosis/clubbing/edma bilat Neurological: Grossly Neurologically Intact, Normal Speech IVs and Medications Medications Reviewed: Medications were reviewed in detail Lab and Diagnostics Result Diagram: 10/11/16 1325 10/11/16 0532 Assessment & Plan 76-year-old female status post radical cystectomy and hysterectomy done [address] Clark for bladder cancer. She sees Dr. Kay for oncology and has received 4 months of chemotherapy which has been discontinued at this point. The hospital service was consulted for anemia, hypotension, glaucoma. # Anemia: -Multifactorial including acute blood loss anemia, anemia of chronic disease, iron deficiency anemia. -She has had 2 units of PRBC transfusion so far -Continue iron and vitamin C supplementation when the patient can take by mouth. -Follow blood levels closely. -NG output concerning for bleeding. -consider further GI consult for possible EGD. -Continue Protonix # Bladder cancer: -post radical cystectomy, urethrectomy, total hysterectomy, B/L salpingo- oophorectomy, creation of ileal conduit urinary diversion, and B/L pelvic lymph node dissection on 10/08/16 -Status post [address] Kay. -post-op management and pain control per primary urology service # Acute hypokalemia - replete and f/u # Hypertension, chronic -hypotensive episode resolved. -She takes hydrochlorothiazide at home. Will hold for now # Glaucoma: -Continue home medications, presumed stable # Other stable conditions include known LBBB, osteopenia, heart murmur Dispo: pending stable h/h and per primary urology service VTE Prophylaxis: SCDs VTE Mechanical Devices: Intermittant Pneumatic CD Resuscitation Status: CPR: Attempt Resuscitation Valentino Concepcion Oct 11, 2016 15:56
[2016-10-12] VITALS (9 sets, daily range): BP systolic 123–153; BP diastolic 61–79; PULSE 78–91; RESP 16–18; O2SAT 92–94
[2016-10-12] MEDS: Sodium Chloride LOK Flush 10 mL Syringe IVFLUSH SCH ×3 (00:30→18:22)
[2016-10-12] MEDS: Dextrose 5% 0.45% NaCl 1,000 ML IV SCH (01:57)
[2016-10-12 05:44] LABS: Mean Corpuscular Hemoglobin 29.7 pg (27.0-35.0); Mean Corpuscular Volume 92.4 fL (81-100)
[2016-10-12] MEDS: PrednisoLONE 1% 5 mL Ophthalmic Suspension LEFT_EYE SCH ×4 (05:54→22:07)
[2016-10-12] MEDS: KETOROLAC 0.5% LEFT_EYE SCH ×5 (06:12→23:15)
--- NOTE | 2016-10-12 07:35 | PCM.PNSURG ---
Subjective Date of Service: Oct 12, 2016 Date of Service: Oct 12, 2016 Subjective: Patient reports occasional mild abdominal incisional pain (well-controlled by epidural SENIOR MARKETING MANAGER), no nausea, no vomiting, passed flatus last night, has not had a BM yet. Patient is being followed by physical therapy and wound care nurse. Patient ambulated several steps with physical therapy and sat on the side of the bed yesterday. Objective Vital Sign- Last 8 Hours Date Time Temp Pulse Resp B/P Pulse Ox O2 Delivery O2 Flow Rate FiO2 10/12/16 05:20 36.8 78 18 147/71 94 Room Air 10/12/16 01:43 18 94 Intake and Output- Last 8 Hour 10/12/16 Cumulative From/Thru 07:00 10/07/16 11:29 - 10/12/16 05:18 Intake Total 1075 ml 9931 ml Output Total 100 ml 8210 ml Balance 975 ml 1721 ml Intake Oral 60 ml IV Total 1075 ml 9231 ml Packed Cells 640 ml Output Urine Total 100 ml 2175 ml Stool Total 575 ml Gastric Drainage Total 975 ml Drainage Total 3685 ml Estimated Blood Loss 800 ml Ileal conduit urine output: 1120ml last 8hr. shift SAEID drain output: 55/65ml last 2 8hr. shifts General: Alert, Oriented X3, Cooperative, No Acute Distress Neck: Supple Lungs: Normal Air Movement Abdomen: Soft, Appropriately tender, Non-distended, Other (no rebound or guarding) SURGICAL WOUND : Wound Location/Description Dressing clean/dry/intact. Ileal conduit stoma pink, healthy, viable, with urinary diversion stents in bag , draining [id number] urine. Wound Drainage Type: SAEID Drain #1 (in place, draining serosang. drainage) Neuro: Normal Speech, Sensation Intact Result Diagram: 10/12/1651410/12/16514 Assessment & Plan Impression POD #4, s/p anterior pelvic exenteration (radical cystectomy, urethrectomy, total hysterectomy, B/L salpingo-oophorectomy), creation of ileal conduit urinary diversion, and B/L pelvic lymph node dissection, afebrile, hemodynamically stable, with pain well-controlled by epidural SENIOR MARKETING MANAGER, with excellent urine output, with decreasing SAEID drain output, s/p 1U pRBC transfusion on 10/08-10/09, s/p 1U pRBC transfusion on 10/10, with labs this AM showing stable Hct (26.8) and normal Cr (0.49), s/p passage of flatus last night Problems: (1) Bladder cancer ICD Code: C67.9 Plan D/C NGT Start sips of clears Continue SAEID drain to self-suction Continue IVF Continue epidural SENIOR MARKETING MANAGER, as per anesthesia Encourage incentive spirometry 10x/hr. and cough and deep breathing Q2h while awake Encourage OOB to chair and ambulation with assistance Continue SCD boots Continue physical therapy Continue urostomy care and teaching by wound care nurse Check labs (CBC, BMP) in AM Hospitalist follow-up from Dr. Concepcion appreciated VTE Prophylaxis: SCDs Resuscitation Status: CPR: Attempt Resuscitation Kevyn Clark MD Oct 12, 2016 07:35
[2016-10-12] MEDS ORDERED: KCl 40 mEq/D5W 500 mL 40 MEQ in IV Premix 500 EACH IV ONE (07:40)
[2016-10-12] MEDS: Pantoprazole 4 mg/mL 10 mL Inj IVPUSH SCH ×2 (09:26→18:22)
[2016-10-12] MEDS: D5 0.45% NaCl + KCl 20 mEq/L 1,000 ML IV SCH ×2 (09:27→19:26)
[2016-10-12] MEDS: fentaNYL 2 mCg/mL-Bupiv 0.125% 250 ML in IV Premix 1 EACH EPIDURAL SCH (10:27)
[2016-10-12] MEDS ORDERED: Magnesium Sulf 2 Gm/50mL Water 2 GM in IV Premix 1 EACH IV ONE (15:50)
--- NOTE | 2016-10-12 15:50 | PCM.PNMED ---
Subjective Date of Service Oct 12, 2016 Subjective denies any new issues/complaints. no abd pain. reports positive flatus. no BM yet. tolerating sips of clears this am. Exam Vital Signs Vital Sign - Last Date Time Temp Pulse Resp B/P Pulse Ox O2 Delivery O2 Flow Rate FiO2 10/12/16 14:03 36.8 89 18 153/79 93 Room Air 10/08/16 14:45 10 Intake and Output 10/11/16 10/11/16 10/12/16 Cumulative From/Thru 15:00 23:00 07:00 10/07/16 11:29 - 10/12/16 05:18 Intake Total 1079 ml 1075 ml 9931 ml Output Total 2180 ml 100 ml 8210 ml Balance -1101 ml 975 ml 1721 ml Intake Oral 0 ml 60 ml IV Total 1079 ml 1075 ml 9231 ml Packed Cells 640 ml Output Urine Total 1550 ml 100 ml 2175 ml Stool Total 575 ml 575 ml Gastric Drainage Total 975 ml Drainage Total 55 ml 3685 ml Estimated Blood Loss 800 ml Exam General: Alert, Cooperative, No Acute Distress Eyes: Scleral Anicteric Mouth: Mucous Membr Moist/[place] Neck: Supple Chest & Lungs: Chest Wall Normal, Clear to auscultation bilat Cardiovascular: Regular Rate/Rhythm Abdomen: Non-tender, Non-distended, Soft, Other (ng tube in place and clamped) Extremities: No cyanosis/clubbing/edema bilat Neurological: Grossly Neurologically Intact, Normal Speech IVs and Medications Medications Reviewed: Medications were reviewed in detail Lab and Diagnostics Result Diagram: 10/12/1651410/12/16514 Assessment & Plan 76-year-old female status post radical cystectomy and hysterectomy done [address] Clark for bladder cancer. She sees Dr. Kay for oncology and has received 4 months of chemotherapy which has been discontinued at this point. The hospital service was consulted for anemia, hypotension, glaucoma. # Acute Anemia. -Multifactorial including acute blood loss anemia, anemia of chronic disease, iron deficiency anemia. -h/h remaining stable -She has had 2 units of PRBC transfusion so far -Continue iron and vitamin C supplementation when the patient can take by mouth. -f/u -consider further GI consult for possible EGD (likely as outpatient if h/h continue to remain stable) -Continue Protonix # Bladder cancer: -post radical cystectomy, urethrectomy, total hysterectomy, B/L salpingo- oophorectomy, creation of ileal conduit urinary diversion, and B/L pelvic lymph node dissection on 10/08/16 -Status post [address] Kay. -post-op management and pain control per primary urology service # Acute hypokalemia - replete and f/u # Hypertension, chronic -hypotensive episode resolved. -Resume home dose hydrochlorothiazide when able to tolerate more PO # Glaucoma: -Continue home medications, presumed stable # Other stable conditions include known LBBB, osteopenia, heart murmur Dispo: per primary urology service VTE Prophylaxis: SCDs VTE Mechanical Devices: Intermittant Pneumatic CD Resuscitation Status: CPR: Attempt Resuscitation Valentino Concepcion Oct 12, 2016 15:50
--- NOTE | 2016-10-12 17:52 | PROG NOTE ---
[address] [address] PROGRESS NOTE PATIENT: AMCKENZIE EASTMAN : 1940 MR#: [id number] ADMIT: 10/08/2016 JOB ID: [id number] DATE: SUBJECTIVE: A 76-year-old female, postop day four, status post cystectomy, ileal loop diversion with anterior exoneration currently with a thoracic epidural in place, running bupivacaine 0.125% with 2 mcg/mL of fentanyl at a rate of 4 mL an hour with a bolus demand dose of 1 mL which she can utilize q. 30 minutes. On a visual analog scale, complains of 0/10 pain. Currently has her NG tube in place, however, it is clamped and she is taking clears. She is passing gas and she has ambulated several times. She has no other current complaints at this time. OBJECTIVE: T max was afebrile for the past 24 hours. All other vital signs were stable. Her white count is down to 7.5. Hemoglobin is up status post transfusion of 2 units to 8.6. Platelets are 274. She is not on any anticoagulants or DVT prophylaxis. Her epidural site is clean, dry and intact and she has no focal neurological deficits. ASSESSMENT AND PLAN: This patient is making an excellent recovery from a rather extensive surgery. She is currently happy with her pain control and she is seemingly making progress toward discharge probably in the next three days. We will continue to follow.
[2016-10-13] VITALS (9 sets, daily range): BP systolic 131–152; BP diastolic 69–70; PULSE 80–97; RESP 16–17; O2SAT 91–97
[2016-10-13] MEDS: Sodium Chloride LOK Flush 10 mL Syringe IVFLUSH SCH ×3 (00:30→17:11)
[2016-10-13] MEDS: D5 0.45% NaCl + KCl 20 mEq/L 1,000 ML IV SCH ×2 (04:04→20:24)
[2016-10-13 06:16] LABS: Mean Corpuscular Hemoglobin 29.3 pg (27.0-35.0); Mean Corpuscular Volume 93.6 fL (81-100)
[2016-10-13] MEDS ORDERED: KCl 40 mEq/D5W 500 mL 40 MEQ in IV Premix 500 EACH IV ONE (07:30)
[2016-10-13] MEDS: KETOROLAC 0.5% LEFT_EYE SCH ×4 (08:02→22:08)
[2016-10-13] MEDS: Pantoprazole 4 mg/mL 10 mL Inj IVPUSH SCH ×2 (08:03→17:08)
[2016-10-13] MEDS: PrednisoLONE 1% 5 mL Ophthalmic Suspension LEFT_EYE SCH ×4 (08:04→22:08)
--- NOTE | 2016-10-13 12:04 | PCM.PNSURG ---
Subjective Date of Service: Oct 13, 2016 Date of Service: Oct 13, 2016 Subjective: Patient reports occasional mild abdominal incisional pain (with ambulation, well -controlled by epidural BLOWING ENGINEER), tolerating clears, no nausea, no vomiting, passed flatus yesterday and this AM, has not had a BM yet. Patient is being followed by physical therapy and wound care nurse. Patient ambulated correction down the hallway with a walker with assistance this AM. NGT was removed yesterday. Objective Vital Sign- Last 8 Hours Date Time Temp Pulse Resp B/P Pulse Ox O2 Delivery O2 Flow Rate FiO2 10/13/16 10:52 97 10/13/16 08:13 17 94 10/13/16 06:13 36.6 80 17 131/70 94 Room Air 10/13/16 04:57 16 97 Intake and Output- Last 8 Hour 10/13/16 Cumulative From/Thru 07:00 10/07/16 11:29 - 10/13/16 06:12 Intake Total 150 ml 79348 ml Output Total 820 ml 26875 ml Balance -670 ml -734 ml Intake Oral 150 ml 510 ml IV Total 89507 ml Packed Cells 640 ml Output Urine Total 2175 ml Stool Total 575 ml Gastric Drainage Total 1025 ml Drainage Total 820 ml 7860 ml Estimated Blood Loss 800 ml # Bowel Movements 0 0 Ileal conduit urine output: 2040/750ml last 2 8hr. shifts SAEID drain output: 130/70ml last 2 8hr. shifts General: Alert, Oriented X3, Cooperative, No Acute Distress Neck: Supple Lungs: Normal Air Movement Abdomen: Soft, Appropriately tender, Non-distended, Other (no rebound or guarding) SURGICAL WOUND : Wound Location/Description Dressing removed. Incision clean/dry/intact, healing well, jacy intact. Ileal conduit stoma pink, healthy, viable, with urinary diversion stents in bag , draining [id number] urine. Wound Drainage Type: SAEID Drain #1 (in place, draining serous>serosang. drainage) Neuro: Normal Speech, Sensation Intact Result Diagram: 10/13/16 0545 10/13/16 0545 Assessment & Plan Impression POD #5, s/p anterior pelvic exenteration (radical cystectomy, urethrectomy, total hysterectomy, B/L salpingo-oophorectomy), creation of ileal conduit urinary diversion, and B/L pelvic lymph node dissection, afebrile, hemodynamically stable, with pain well-controlled by epidural BLOWING ENGINEER, with excellent urine output, with mild-moderate SAEID drain output, s/p 1U pRBC transfusion on 10/08-10/09, s/p 1U pRBC transfusion on 10/10, with labs this AM showing stable Hct (26.2) and normal Cr (0.49), with improving bowel function, tolerating clears Problems: (1) Bladder cancer ICD Code: C67.9 Plan Continue clears Continue SAEID drain to self-suction. Check SAEID fluid for Cr Continue IVF Start PO [place] PRN Would consider weaning epidural BLOWING ENGINEER. Will defer to anesthesia. Encourage incentive spirometry 10x/hr. and cough and deep breathing Q2h while awake Encourage OOB to chair and ambulation with assistance Continue SCD boots Continue physical therapy Continue urostomy care and teaching by wound care nurse Check labs (CBC, BMP) in AM Hospitalist follow-up from Dr. Concepcion and anesthesia follow-up from Dr. Castillo appreciated VTE Prophylaxis: SCDs Resuscitation Status: CPR: Attempt Resuscitation Kevyn Clark MD Oct 13, 2016 12:04
--- NOTE | 2016-10-13 16:56 | PCM.PNMED ---
Subjective Date of Service Oct 13, 2016 Subjective denies any new issues/complaints. no abd pain. reports positive flatus. no BM yet. tolerating sips of clears this am. Exam Vital Signs Vital Sign - Last Date Time Temp Pulse Resp B/P Pulse Ox O2 Delivery O2 Flow Rate FiO2 10/13/16 14:12 36.9 85 16 148/69 93 Room Air 10/08/16 14:45 10 Intake and Output 10/12/16 10/12/16 10/13/16 Cumulative From/Thru 15:00 23:00 07:00 10/07/16 11:29 - 10/13/16 06:12 Intake Total 0 ml 1620 ml 150 ml 83749 ml Output Total 1185 ml 2220 ml 820 ml 13128 ml Balance -1185 ml -600 ml -670 ml -734 ml Intake Oral 0 ml 300 ml 150 ml 510 ml IV Total 1320 ml 31666 ml Packed Cells 640 ml Output Urine Total 2175 ml Stool Total 575 ml Gastric Drainage Total 0 ml 50 ml 1025 ml Drainage Total 1185 ml 2170 ml 820 ml 7860 ml Estimated Blood Loss 800 ml # Bowel Movements 0 0 Exam General: Alert, Cooperative, No Acute Distress Eyes: Scleral Anicteric Mouth: Mucous Membr Moist/[place] Neck: Supple Chest & Lungs: Chest Wall Normal, Clear to auscultation bilat Cardiovascular: Regular Rate/Rhythm Abdomen: Non-tender, Non-distended, Soft, Other (ng tube in place and clamped) Extremities: No cyanosis/clubbing/edema bilat Neurological: Grossly Neurologically Intact, Normal Speech IVs and Medications Medications Reviewed: Medications were reviewed in detail Lab and Diagnostics Result Diagram: 10/13/1645 10/13/16 0545 Assessment & Plan 76-year-old female status post radical cystectomy and hysterectomy done [address] Clark for bladder cancer. She sees Dr. Kay for oncology and has received 4 months of chemotherapy which has been discontinued at this point. The hospital service was consulted for anemia, hypotension, glaucoma. # Acute Anemia. -Multifactorial including acute blood loss anemia, anemia of chronic disease, iron deficiency anemia. -h/h remaining stable -She has had 2 units of PRBC transfusion so far -Continue iron and vitamin C supplementation when the patient can take by mouth. -consider further GI consult for possible EGD as outpatient -Continue Protonix # Bladder cancer: -post radical cystectomy, urethrectomy, total hysterectomy, B/L salpingo- oophorectomy, creation of ileal conduit urinary diversion, and B/L pelvic lymph node dissection on 10/08/16 -Status post [address] Kay. -post-op management and pain control per primary urology service # Acute hypokalemia. improving - continue to replete and f/u # Hypertension, chronic -hypotensive episode resolved. -Resume home dose hydrochlorothiazide when able to tolerate more PO # Glaucoma: -Continue home medications, presumed stable # Other stable conditions include known LBBB, osteopenia, heart murmur Dispo: per primary urology service VTE Prophylaxis: SCDs VTE Mechanical Devices: Intermittant Pneumatic CD Resuscitation Status: CPR: Attempt Resuscitation Valentino Concepcion Oct 13, 2016 16:56
[2016-10-13] MEDS: fentaNYL 2 mCg/mL-Bupiv 0.125% 100 ML in IV Premix 1 EACH EPIDURAL SCH (17:02)
--- NOTE | 2016-10-13 18:38 | PROG NOTE ---
[address] [address] PROGRESS NOTE PATIENT: MACKENZIE EASTMAN : 1940 MR#: [id number] ADMIT: 10/08/2016 JOB ID: [id number] DATE: SUBJECTIVE: A 76-year-old female, postop day five, status post diverting loop ileostomy with anterior pelvic exoneration, currently with a thoracic epidural in place running bupivacaine 0.125% with 3 mcg/mL of fentanyl at a rate of 4 mL an hour. She has a demand dose which she can utilize every 30 minutes at 1 mL/h. On a visual analog scale, she complains of 0/10 abdominal pain while at rest in bed, although she did have a little bit of pain after ambulating with her walker in the sa[place] today, although she states that it was tolerable. She does not wish to change her current pain control. Her NG tube has been removed. She is taking clears and she had some Jell-O today which she has kept down. OBJECTIVE: T-max was afebrile. All other vital signs stable. Hemoglobin is stable at 8.2. White cells are 5.3, platelets are 270. She is not on anticoagulants for DVT prophylaxis. Her epidural site is clean, dry, and intact, and she has no focal neurological deficits. ASSESSMENT AND PLAN: This patient is making a good recovery considering her age and the extent of the surgery. We will continue to follow her and I do not see any hurry in removing the epidural until she is eating solid foods with the plan of discharge. Likely, discontinue the epidural catheter on .
[2016-10-14] VITALS (7 sets, daily range): BP systolic 115–130; BP diastolic 62–70; PULSE 82–93; RESP 16–18; O2SAT 96
[2016-10-14] MEDS: Sodium Chloride LOK Flush 10 mL Syringe IVFLUSH SCH ×4 (00:30→23:38)
[2016-10-14] MEDS: KETOROLAC 0.5% LEFT_EYE SCH ×6 (03:49→21:27)
[2016-10-14 05:01] LABS: Mean Corpuscular Volume 93.1 fL (81-100)
[2016-10-14 05:25] LABS: Magnesium 1.9 mg/dL (1.6-2.6)
[2016-10-14] MEDS: PrednisoLONE 1% 5 mL Ophthalmic Suspension LEFT_EYE SCH ×4 (08:27→21:25)
[2016-10-14] MEDS: Pantoprazole 4 mg/mL 10 mL Inj IVPUSH SCH ×2 (08:27→16:07)
[2016-10-14] MEDS: D5 0.45% NaCl + KCl 20 mEq/L 1,000 ML IV SCH ×2 (08:42→20:08)
--- NOTE | 2016-10-14 12:15 | PCM.PNSURG ---
Subjective Date of Service: Oct 14, 2016 Date of Service: Oct 14, 2016 Subjective: Patient reports occasional mild abdominal incisional pain (well-controlled by epidural ENGINE SETTER), tolerating clears, no nausea, no vomiting, passing flatus, has not had a BM yet. Patient is being followed by physical therapy and wound care nurse. Patient has been ambulating in the hallway with a walker with assistance. Objective Vital Sign- Last 8 Hours Date Time Temp Pulse Resp B/P Pulse Ox O2 Delivery O2 Flow Rate FiO2 10/14/16 10:26 Room Air 10/14/16 08:35 16 10/14/16 05:58 16 Intake and Output- Last 8 Hour 10/14/16 Cumulative From/Thru 07:00 10/07/16 11:29 - 10/14/16 05:58 Intake Total 1728 ml 42479 ml Output Total 1030 ml 84451 ml Balance 698 ml 2236 ml Intake Oral 800 ml 2310 ml IV Total 928 ml 37653 ml Packed Cells 640 ml Output Urine Total 2175 ml Stool Total 575 ml Gastric Drainage Total 1025 ml Drainage Total 1030 ml 9805 ml Estimated Blood Loss 800 ml # Bowel Movements 0 0 Ileal conduit urine output: 850/1000ml last 2 8hr. shifts SAEID drain output: 65/30ml last 2 8hr. shifts General: Alert, Oriented X3, Cooperative, No Acute Distress Neck: Supple Lungs: Normal Air Movement Abdomen: Soft, Appropriately tender, Other (mildly distended, no rebound or guarding) SURGICAL WOUND : Wound Location/Description Incision clean/dry/intact, healing well, jacy intact. Ileal conduit stoma pink, healthy, viable, with urinary diversion stents in bag , draining clear urine. Wound Drainage Type: SAEID Drain #1 (in place, draining serous drainage) Neuro: Normal Speech, Sensation Intact Result Diagram: 10/14/168 10/14/16 043 Assessment & Plan Impression POD #6, s/p anterior pelvic exenteration (radical cystectomy, urethrectomy, total hysterectomy, B/L salpingo-oophorectomy), creation of ileal conduit urinary diversion, and B/L pelvic lymph node dissection, afebrile, hemodynamically stable, with pain well-controlled by epidural ENGINE SETTER, with excellent urine output, with decreasing SAEID drain output, s/p 1U pRBC transfusion on 10/08-10/09, s/p 1U pRBC transfusion on 10/10, with labs this AM showing stable Hct (27.0) and normal Cr (0.49), with improving bowel function, tolerating clears Problems: (1) Bladder cancer ICD Code: C67.9 Plan Continue clears. Anticipate will likely be able to advance to soft, bland diet tomorrow Continue SAEID drain to self-suction. Check SAEID fluid for Cr Continue IVF Start PO [place] PRN Would consider weaning and then removing epidural. Will defer to anesthesia Encourage incentive spirometry 10x/hr. and cough and deep breathing Q2h while awake Encourage OOB to chair and ambulation with assistance Continue SCD boots Continue physical therapy Continue urostomy care and teaching by wound care nurse Check labs (CBC, BMP) in AM Hospitalist follow-up from Dr. Concepcion and anesthesia follow-up from Dr. Castillo appreciated VTE Prophylaxis: SCDs Resuscitation Status: CPR: Attempt Resuscitation Kevyn Clark MD Oct 14, 2016 12:15
[2016-10-14] MEDS: fentaNYL 2 mCg/mL-Bupiv 0.125% 100 ML in IV Premix 1 EACH EPIDURAL SCH (14:50)
--- NOTE | 2016-10-14 14:58 | PROG NOTE ---
[address] [address] PROGRESS NOTE PATIENT: MACKENZIE EASTMAN : 1940 MR#: [id number] ADMIT: 10/08/2016 JOB ID: [id number] DATE: 10/14/2016 SUBJECTIVE: A 76-year-old female, postop day six status post anterior pelvic exoneration with cystectomy and ileal loop diversion currently with a thoracic epidural in place running 4 mL an hour of bupivacaine 0.125% with 2 mcg per mL of fentanyl with a bolus demand dose of 1 mL which she can utilize every 30 minutes. On a visual analog scale, she complains of 0/10 pain at rest and mild discomfort when she ambulates. She has ambulated multiple times. She is tolerating clears well and has no complaints about her current pain regime. OBJECTIVE: T-max is afebrile. All other vital signs stable. LABORATORY VALUES: Were platelets 277. White count 4.8, hemoglobin 8.4. She is not on any DVT prophylaxis. Her epidural site is clean, dry, and intact and she has no focal neurological deficits. ASSESSMENT AND PLAN: The patient is making an excellent recovery and she is currently a delight to spend time with. She and I discussed removing her epidural today versus tomorrow morning and she opted for tomorrow morning thinking that having a good night's sleep would be beneficial, although she did mention she was going to not use the demand dose button, and if she needed some pain control, she would try oral pain medication. I will remove the epidural tomorrow morning around 7:30 at which time, she will then be transferred to oral pain medicine.
[2016-10-14] MEDS: HYDROcodone-APAP 10-325 mg PO PRN (16:09)
--- NOTE | 2016-10-14 17:06 | PCM.PNMED ---
Subjective Date of Service Oct 14, 2016 Subjective denies any new issues/complaints. no abd pain. reports positive flatus. no BM yet. tolerating sips of clears this am. Exam Vital Signs Vital Sign - Last Date Time Temp Pulse Resp B/P Pulse Ox O2 Delivery O2 Flow Rate FiO2 10/14/16 16:17 18 96 10/14/16 13:57 36.5 89 127/62 Room Air 10/08/16 14:45 10 Intake and Output 10/13/16 10/13/16 10/14/16 Cumulative From/Thru 15:00 23:00 07:00 10/07/16 11:29 - 10/14/16 05:58 Intake Total 922 ml 2265 ml 1728 ml 43269 ml Output Total 915 ml 1030 ml 79571 ml Balance 922 ml 1350 ml 698 ml 2236 ml Intake Oral 1000 ml 800 ml 2310 ml IV Total 922 ml 1265 ml 928 ml 70980 ml Packed Cells 640 ml Output Urine Total 2175 ml Stool Total 575 ml Gastric Drainage Total 1025 ml Drainage Total 915 ml 1030 ml 9805 ml Estimated Blood Loss 800 ml # Bowel Movements 0 0 0 Exam General: Alert, Cooperative, No Acute Distress Eyes: Scleral Anicteric Mouth: Mucous Membr Moist/[place] Neck: Supple Chest & Lungs: Chest Wall Normal, Clear to auscultation bilat Cardiovascular: Regular Rate/Rhythm Abdomen: Non-tender, Non-distended, Soft, Other (ng tube in place and clamped) Extremities: No cyanosis/clubbing/edema bilat Neurological: Grossly Neurologically Intact, Normal Speech IVs and Medications Medications Reviewed: Medications were reviewed in detail Lab and Diagnostics Result Diagram: 10/14/16 0438 10/14/16 0438 Assessment & Plan 76-year-old female status post radical cystectomy and hysterectomy done [address] Clark for bladder cancer. She sees Dr. Kay for oncology and has received 4 months of chemotherapy which has been discontinued at this point. The hospital service was consulted for anemia, hypotension, glaucoma. # Acute Anemia. -Multifactorial including acute blood loss anemia, anemia of chronic disease, iron deficiency anemia. -h/h remaining stable -She has had 2 units of PRBC transfusion so far -Continue iron and vitamin C supplementation when the patient can take by mouth. -consider further GI consult for possible EGD as outpatient -Continue Protonix # Bladder cancer: -post radical cystectomy, urethrectomy, total hysterectomy, B/L salpingo- oophorectomy, creation of ileal conduit urinary diversion, and B/L pelvic lymph node dissection on 10/08/16 -Status post [address] Kay. -post-op management and pain control per primary urology service # Acute hypokalemia. improving - continue to replete and f/u # Hypertension, chronic -hypotensive episode resolved. -Resume home dose hydrochlorothiazide when able to tolerate more PO # Glaucoma: -Continue home medications, presumed stable # Other stable conditions include known LBBB, osteopenia, heart murmur Dispo: per primary urology service VTE Prophylaxis: SCDs VTE Mechanical Devices: Intermittant Pneumatic CD Resuscitation Status: CPR: Attempt Resuscitation Valentino Concepcion Oct 14, 2016 17:06
[2016-10-15] VITALS (8 sets, daily range): BP systolic 130–159; BP diastolic 63–73; PULSE 75–84; RESP 16–18; O2SAT 93–96
[2016-10-15] MEDS: PrednisoLONE 1% 5 mL Ophthalmic Suspension LEFT_EYE SCH ×4 (06:25→21:05)
[2016-10-15] MEDS: KETOROLAC 0.5% LEFT_EYE SCH ×5 (06:25→23:56)
[2016-10-15] MEDS: HYDROcodone-APAP 10-325 mg PO PRN ×3 (06:39→22:33)
[2016-10-15] MEDS: Pantoprazole 4 mg/mL 10 mL Inj IVPUSH SCH ×2 (07:48→16:49)
[2016-10-15] MEDS: Sodium Chloride LOK Flush 10 mL Syringe IVFLUSH SCH ×3 (07:48→23:56)
[2016-10-15] MEDS: D5 0.45% NaCl + KCl 20 mEq/L 1,000 ML IV SCH (08:02)
[2016-10-15 08:07] LABS: Mean Corpuscular Hemoglobin 29.2 pg (27.0-35.0); Mean Corpuscular Volume 93.6 fL (81-100)
--- NOTE | 2016-10-15 09:55 | PROG NOTE ---
[address] [address] PROGRESS NOTE PATIENT: MACKENZIE EASTMAN : 1940 MR#: [id number] ADMIT: 10/08/2016 JOB ID: [id number] DATE: 10/15/2016 SUBJECTIVE: A 76-year-old female, postop day seven status post cystectomy with ileal loop diversion and anterior pelvic exoneration. Currently with a thoracic epidural in place running 4 mL/h of bupivacaine 0.125% with 2 mcg/mL of fentanyl. She has a demand dose of 1 mL which she can utilize every 30 minutes. She has not used this demand dose in 24 hours. On a visual analog scale, she complains of 0/10 abdominal pain at rest and mild discomfort while moving. She is tolerating a clear liquid diet well and has had two pain pills this morning and kept them down and feels fine. She has ambulated multiple times and is passing gas. She is excited to get the epidural out as she transitions to discharge hopefully tomorrow or this weekend. OBJECTIVE: T-max is afebrile. All other vital signs are stable. Laboratory values were normal today. Epidural site is clean, dry and intact and she has no focal neurological deficits. ASSESSMENT AND PLAN: This morning I removed her epidural catheter and noted that the blue tip was intact and wished her well on her recovery. I talked to her about her oral pain medication and that if she is uncomfortable she can simply request it, although I do not think she will have much abdominal pain at this point considering we are one week post operation. This patient was an absolute pleasure to take care.
--- NOTE | 2016-10-15 10:10 | PCM.PNSURG ---
Subjective Date of Service: Oct 15, 2016 Date of Service: Oct 15, 2016 Subjective: Patient reports no abdominal pain, tolerating clears, no nausea, no vomiting, passing flatus, has not had a BM yet. Patient is being followed by physical therapy and wound care nurse. Patient has been ambulating in the hallway with a walker. Epidural was removed by anesthesia this AM. Objective Vital Sign- Last 8 Hours Date Time Temp Pulse Resp B/P Pulse Ox O2 Delivery O2 Flow Rate FiO2 10/15/16 08:09 17 95 10/15/16 06:40 36.6 81 17 147/66 95 Room Air 10/15/16 04:22 18 96 Intake and Output- Last 8 Hour 10/15/16 Cumulative From/Thru 07:00 10/07/16 11:29 - 10/15/16 06:39 Intake Total 2521 ml 53680 ml Output Total 1030 ml 38425 ml Balance 1491 ml 5709 ml Intake Oral 550 ml 4540 ml IV Total 1971 ml 74685 ml Packed Cells 640 ml Output Urine Total 2175 ml Stool Total 575 ml Gastric Drainage Total 1025 ml Drainage Total 1030 ml 70868 ml Estimated Blood Loss 800 ml # Bowel Movements 0 0 Ileal conduit urine output: 590/1000ml last 2 8hr. shifts SAEID drain output: 85/30ml last 2 8hr. shifts General: Alert, Oriented X3, Cooperative, No Acute Distress Neck: Supple Lungs: Normal Air Movement Abdomen: Soft, Non-tender, Other (minimally distended, no rebound or guarding) SURGICAL WOUND : Wound Location/Description Incision clean/dry/intact, healing well, jacy intact. Ileal conduit stoma pink, healthy, viable, with urinary diversion stents in bag , draining clear urine. Wound Drainage Type: SAEID Drain #1 (in place, draining serous drainage. 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, [id number] (discussed with patient) Assessment & Plan Impression POD #7, s/p anterior pelvic exenteration (radical cystectomy, urethrectomy, total hysterectomy, B/L salpingo-oophorectomy), creation of ileal conduit urinary diversion, and B/L pelvic lymph node dissection, afebrile, hemodynamically stable, with no pain, s/p epidural removal this AM, with excellent urine output, with decreasing SAEID drain output, with SAEID drain Cr 0.51 ( =serum) yesterday, s/p SAEID drain removal this AM, s/p 1U pRBC transfusion on 10/08- 10/09, s/p 1U pRBC transfusion on 10/10, with labs this AM showing Hct increased to 27.6 and normal Cr (0.56), with improving bowel function, tolerating clears Problems: (1) Bladder cancer ICD Code: C67.9 Plan Advance to soft, bland, 2gm Na diet today He[place]ock IV PO [place] PRN Encourage incentive spirometry 10x/hr. and cough and deep breathing Q2h while awake Encourage OOB to chair and ambulation with assistance Continue SCD boots Continue physical therapy Continue urostomy care and teaching by wound care nurse Hospitalist follow-up from Dr. Concepcion and anesthesia follow-up from Dr. Castillo appreciated Patient likely will be able to be discharged home tomorrow VTE Prophylaxis: SCDs Resuscitation Status: CPR: Attempt Resuscitation Kevyn Clark MD Oct 15, 2016 10:10
--- NOTE | 2016-10-15 14:10 | PCM.PNMED ---
Subjective Date of Service Oct 15, 2016 Subjective denies any new issues/complaints. no abd pain. reports positive flatus. no BM yet. tolerating clears Exam Vital Signs Vital Sign - Last Date Time Temp Pulse Resp B/P Pulse Ox O2 Delivery O2 Flow Rate FiO2 10/15/16 08:09 17 95 10/15/16 06:40 36.6 81 147/66 Room Air Intake and Output 10/14/16 10/14/16 10/15/16 Cumulative From/Thru 15:00 23:00 07:00 10/07/16 11:29 - 10/15/16 06:39 Intake Total 2657 ml 2521 ml 13044 ml Output Total 675 ml 1030 ml 05777 ml Balance 1982 ml 1491 ml 5709 ml Intake Oral 1680 ml 550 ml 4540 ml IV Total 977 ml 1971 ml 31511 ml Packed Cells 640 ml Output Urine Total 2175 ml Stool Total 575 ml Gastric Drainage Total 1025 ml Drainage Total 675 ml 1030 ml 09823 ml Estimated Blood Loss 800 ml # Bowel Movements 0 0 Exam General: Alert, Cooperative, No Acute Distress Eyes: Scleral Anicteric Mouth: Mucous Membr Moist/[place] Neck: Supple Chest & Lungs: Chest Wall Normal, Clear to auscultation bilat Cardiovascular: Regular Rate/Rhythm Abdomen: Non-tender, Non-distended, Soft, Other (ng tube in place and clamped) Extremities: No cyanosis/clubbing/edema bilat Neurological: Grossly Neurologically Intact, Normal Speech IVs and Medications Medications Reviewed: Medications were reviewed in detail Lab and Diagnostics Result Diagram: 10/15/16 0746 10/15/16 0746 Assessment & Plan 76-year-old female status post radical cystectomy and hysterectomy done [address] Clark for bladder cancer. She sees Dr. Kay for oncology and has received 4 months of chemotherapy which has been discontinued at this point. The hospital service was consulted for anemia, hypotension, glaucoma. # Acute Anemia. -Multifactorial including acute blood loss anemia, anemia of chronic disease, iron deficiency anemia. -h/h remaining stable -She has had 2 units of PRBC transfusion so far -Continue iron supplementation on discharge -consider further GI consult for possible EGD as outpatient # Bladder cancer: -post radical cystectomy, urethrectomy, total hysterectomy, B/L salpingo- oophorectomy, creation of ileal conduit urinary diversion, and B/L pelvic lymph node dissection on 10/08/16 -Status post [address] Kay. -post-op management and pain control per primary urology service # Acute hypokalemia. Resolved # Hypertension, chronic -hypotensive episode resolved. -Resume home dose hydrochlorothiazide when able to tolerate more PO (likely tomorrow and if going home) # Glaucoma: -Continue home medications, presumed stable # Other stable conditions include known LBBB, osteopenia, heart murmur Dispo: per primary urology service likely tomorrow. VTE Prophylaxis: SCDs VTE Mechanical Devices: Intermittant Pneumatic CD Resuscitation Status: CPR: Attempt Resuscitation Valentino Concepcion Oct 15, 2016 14:10
[2016-10-16 06:28] VITALS: BP 159/69; PULSE 75; RESP 17; O2SAT 96
[2016-10-16] MEDS: PrednisoLONE 1% 5 mL Ophthalmic Suspension LEFT_EYE SCH ×2 (07:46→11:40)
[2016-10-16] MEDS: Sodium Chloride LOK Flush 10 mL Syringe IVFLUSH SCH (07:47)
[2016-10-16] MEDS: Pantoprazole 4 mg/mL 10 mL Inj IVPUSH SCH (07:47)
[2016-10-16] MEDS: KETOROLAC 0.5% LEFT_EYE SCH (07:55)
--- NOTE | 2016-10-16 12:42 | PCM.DISURG ---
Surgical Discharge Instruction Date of Service Oct 16, 2016 Dates of Hospitalization Date of Hospital Admission Oct 08, 2016 Providers Admitting Physician: Kevyn Clark MD Primary Care Physician: Gagan Vasquez MD Attending Physician: Kevyn Clark MD Discharge Diagnosis Discharge Diagnosis Muscle-invasive bladder CA Post Operative diagnosis Muscle-invasive bladder CA Diet Discharge Diet: Other (Soft, bland, low (2 gm) sodium diet) Activity Discharge Activity-General: No driving while taking narcotic, Other (No strenuous exercise/activity, moderate or heavy lifting (more than 10 lbs.), or abdominal straining for 6-8 weeks after surgery) Dressing and Incisional Care Hygiene: May shower, Other (No bath/pool/spa for 4 weeks after surgery) Follow Up Plan Follow-up Provider (F9): Kevyn Clark MD Follow-up appointment: Days (4-5 days for post-op visit) Call your provider for: Fever, Chills, Shortness of breath, Increasing abdominal pain, Vomiting, Wound redness, Increasing wound pain, Discharge @ incision, pus discharge, Other (Pain uncontrolled by pain medications) Kevyn Clark MD Oct 16, 2016 12:42
[2016-10-29] MEDS ORDERED: PANT40TA3 PO (10:01)
[2016-10-29] MEDS ORDERED: HYDR-4003 PO (10:01)
--- NOTE | 2016-11-14 09:34 | PCM.DC.SUR ---
Discharge Summary Date of Service: Oct 16, 2016 Date of Hospital Admission: Oct 08, 2016 Date of Operation(s): Oct 08, 2016 Date of Discharge: Oct 16, 2016 Diagnosis at Time of Discharge Muscle-invasive bladder CA Problems: (1) Bladder cancer ICD Code: C67.9 Operation Anterior pelvic exenteration (radical cystectomy, urethrectomy, total hysterectomy, B/L salpingo-oophorectomy), creation of ileal conduit urinary diversion, and B/L pelvic lymph node dissection Brief History and Physical: Patient is a 76yo female with muscle-invasive bladder CA. Patient completed neoadjuvant chemotherapy and now presents for anterior pelvic exenteration ( radical cystectomy, urethrectomy, total hysterectomy, B/L salpingo-oophorectomy) , creation of ileal conduit urinary diversion, and B/L pelvic lymph node dissection. Consultants: Hospitalist, anesthesiologist Hospital Course: Patient was admitted on 10/08/16 and underwent anterior pelvic exenteration ( radical cystectomy, urethrectomy, total hysterectomy, B/L salpingo-oophorectomy) , creation of ileal conduit urinary diversion, and B/L pelvic lymph node dissection. Patient did well post-operatively. Patient had post-op anemia and received 1U pRBC transfusion on 1/5-1/6 and 1U pRBC transfusion on 1/7. Pain was well-controlled by epidural anesthesia. Patient was seen by physical therapy and wound care nurse (for urostomy care and teaching) during the hospitalization. SAEID drain and epidural were removed on POD #7. Patient was discharged home on POD #8, doing well, afebrile, hemodynamically stable, with pain well-controlled on PO pain meds, with excellent urine output, with stable Hct and normal Cr, tolerating soft diet, ambulating. Pathology: Pending Disposition: Patient discharged home in stable condition Follow-up Plan: Patient to follow-up with me in the office in 4-5 days for post-op visit. Ascorbate Calcium (Vitamin C) 500 Mg Tablet 500 MG PO DAILY (Reported) Calcium Carbonate (Calcium) 600 Mg Tablet 600 MG PO DAILY (Reported) Cholecalciferol (Vitamin D3) (Vitamin D3) 2,000 Unit Capsule 2,000 UNIT PO DAILY (Reported) Hydrocodone-Acetaminophen 5-325 mg (Hydrocodone-Acetaminophen 5-325 mg) 1 Each Tablet 1-2 TABLET PO Q4H PRN PRN For Pain (Reported) Pantoprazole DR (Pantoprazole DR) 40 Mg Tablet.dr 40 MG PO DAILY (Reported) Vit A/Vit C/Vit E/Zinc/Copper (Preservision Areds Tablet) 1 Each Tablet 2 EACH PO BID (Reported) Kevyn Clark MD Nov 14, 2016 09:34
== END 2016-10-16 15:55 | disposition home health service (06) | DRG 654 ==
LOC: SAS 05:40 → OSC 16:57
PROVIDERS: ADMIT Urology; ATTEND Urology
PROC: 07BC0ZX Excision of Pelvis Lymphatic, Open Approach, Diagnostic (ICD-10-PCS; 2016-10-08)
PROC: 0UT90ZZ Resection of Uterus, Open Approach (ICD-10-PCS; 2016-10-08)
PROC: 0UTC0ZZ Resection of Cervix, Open Approach (ICD-10-PCS; 2016-10-08)
PROC: 0UT20ZZ Resection of Bilateral Ovaries, Open Approach (ICD-10-PCS; 2016-10-08)
PROC: 0UT70ZZ Resection of Bilateral Fallopian Tubes, Open Approach (ICD-10-PCS; 2016-10-08)
PROC: 0T1807C Bypass Bilateral Ureters to Ileocutaneous with Autologous Tissue Substitute, Open Approach (ICD-10-PCS; 2016-10-08)
PROC: 0TB70ZZ Excision of Left Ureter, Open Approach (ICD-10-PCS; 2016-10-08)
PROC: 0TB60ZZ Excision of Right Ureter, Open Approach (ICD-10-PCS; 2016-10-08)
PROC: 30233N1 Transfusion of Nonautologous Red Blood Cells into Peripheral Vein, Percutaneous Approach (ICD-10-PCS; 2016-10-08)
PROC: 0TTD0ZZ Resection of Urethra, Open Approach (ICD-10-PCS; 2016-10-08)
PROC: 0TTB0ZZ Resection of Bladder, Open Approach (ICD-10-PCS; principal; 2016-10-08 07:15)
PROC: 30233N1 Transfusion of Nonautologous Red Blood Cells into Peripheral Vein, Percutaneous Approach (ICD-10-PCS; 2016-10-10)
DX: C67.9 Malignant neoplasm of bladder, unspecified (principal); D62 Acute posthemorrhagic anemia; R31.0 Gross hematuria; N39.41 Urge incontinence; I10 Essential (primary) hypertension; D63.8 Anemia in other chronic diseases classified elsewhere; D50.9 Iron deficiency anemia, unspecified; H40.9 Unspecified glaucoma; Z92.21 Personal history of antineoplastic chemotherapy; E87.6 Hypokalemia

== ENCOUNTER 2017-06-07 16:49 | Inpatient (IN) | payer MEDICARE ==
[~2017-06-07] VITALS: Ht 165.1 cm; Wt 60.8 kg
[~2017-06-07 16:49] MED LIST changes: +ACET-2605 PO; -CIPR-231 PO; -DOCU-41 PO; -FERR-83 PO; -FOLI1TAB18 PO; +HYDR-4003 PO; -HYDR12.5 PO; -OXYB15TA PO; -PRED5DRO6 LEFT_EYE; -ketorolac BOTH_EYES
[2017-06-07 17:16] VITALS: BP 118/55; PULSE 97; RESP 18; O2SAT 91
--- NOTE | 2017-06-07 18:14 | ED.REPORT ---
HPI-NVD Date of Service Jun 07, 2017 ED Provider: Chad Bhagat DO Pt is a 77 year old female with a history of HTN and bladder cancer who presents to the ED complaining of shaking onset today. She c/o associated fever , chills, intermittent abdominal pain, non-productive cough, and vomiting. She denies headache, nasal congestion, sore throat, and any other symptoms. Pt reports that she has had chemotherapy 2x (last on 06/03/17) and she has plans to have radiation to treat her bladder cancer. Her last surgery was in 10/08/16. She denies current pain. Nursing Notes Stated Complaint: NAUSEA, VOMITING Chief Complaint: General Complaint Nursing Notes Reviewed: Yes Allergies: Coded Allergies: No Known Allergies (Unverified , 05/13/16) Scheduled Ascorbate Calcium (Vitamin C) 500 Mg Tablet 500 MG PO DAILY Calcium Carbonate (Calcium) 600 Mg Tablet 600 MG PO DAILY Cholecalciferol (Vitamin D3) (Vitamin D3) 2,000 Unit Capsule 2,000 UNIT PO DAILY Folic Acid (Folic Acid) 1 Mg Tablet 1 MG PO QAM Vit A/Vit C/Vit E/Zinc/Copper (Preservision Areds Tablet) 1 Each Tablet 2 EACH PO BID Scheduled PRN Acetaminophen/Diphenhydramine (Tylenol Pm Ex-Strength Caplet) 500 Mg-25 Mg Tablet 1 EACH PO HS PRN PRN Insomnia Hydrocodone-Acetaminophen 5-325 mg (Hydrocodone-Acetaminophen 5-325 mg) 1 Each Tablet 1-2 TABLET PO Q4H PRN PRN For Pain Lorazepam (Lorazepam) 0.5 Mg Tablet 0.5 MG PO Q8H PRN PRN For Nausea/Vomiting Ondansetron (Ondansetron) 4 Mg Tablet 4 MG PO Q6H PRN PRN For Nausea/Vomiting General Time Seen by MD: 18:14 Chief Complaint Other (Shaking) Hx Obtained From: Patient Arrived By: Walk-in Onset Occurred: 5 - 8 hours ago Symptom Duration: Since onset Location: : Diffuse Quality: Painful Radiation: : Does not radiate Severity: Current: No pain currently Severity: Maximum: Moderate Recent Healthcare: Recent doctor visit Similar Sx Previous: No Past Medical History Past Medical History Notes: Oncologist Medications: Acetaminophen 500/diphenhydramine when necessary Hydrochlorothiazide 12.5 mg Calcium carbonate 500 Oxybutynin 15 mg Past Medical History Muscle invasive bladder cancer - recently finished chemotherapy (she has a history of a 2 x 3 x 4 cm urinary bladder mass biopsied May 2016, showing 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 History of heart murmur since Osteopenia with history of fractures of the right wrist Reports: Hypertension Past Surgical History right wrist fracture Reports: Hysterectomy Smoking History Never Smoker Social History Alcohol Use: Denies alcohol use Drug Use: Denies drug use Other Social History: Good social support, Local resident Ambulatory Status Independent Review of Systems Constitutional: Reports: Chills, Fever Ears / Nose / Throat: Denies: Nasal congestion, Sore throat GI: Reports: Abdominal pain, Vomiting Neurologic: Reports: Shaking, Denies: Headache Complete sys rev & neg: except as marked. Respiratory: Reports: Non-productive cough Physical Exam Initial Vital Signs Vital Signs (First) Date Time Temp Pulse Resp B/P Pulse Ox O2 Delivery O2 Flow Rate FiO2 06/07/17 17:16 37.6 97 18 118/55 91 Room Air Initial VS: Reviewed Head / Eyes: Atraumatic, Normocephalic Neck: Supple, Full range of motion Respiratory: Breath sounds normal, Clear to auscultation, No respiratory distress Cardiovascular: Regular rate & rhythm, Heart sounds normal, Intact distal pulses Extremities: Vascular intact, Neuro intact Skin: Warm, Dry, No cyanosis Neurologic: Alert, Oriented, Nonfocal Psychiatric: Mood/affect normal, Behavior normal General/Constitutional: Awake, Alert Appearance / Presentation: Positive: Frail, Ill appearing/not toxic Abdomen: Atraumatic, Soft Tenderness/Guarding/Rebound: Positive: Tender LLQ... (Moderate) Heart Sounds / Murmur: Positive: Murmur present... (harsh ) Interpretation & Diagnostics CT ABDOMEN AND PELVIS: Conclusion: There is a large necrotic tumor mass in the left lower quadrant which is eroding into the adjacent pelvic bones and destroying them. There is some diverticulosis without CT evidence of diverticulitis. There is no evidence for bowel obstruction. Findings discussed with Dr. Bhagat at 22:27 by Jorge Allan M.D. Lab Results Interpretation Result Diagram: 06/07/17204106/07/172041 Test 06/07/17 19:03 06/07/17 20:42 Urine Color Yellow (YELLOW) Urine Appearance Hazy (CLEAR,HAZY) Urine pH 6.0 (5.0-8.0) Urine Specific [place] <1.005 (1.003-1.035) Urine Protein Negativemg/dL (NEG,TRACE) Urine Glucose (UA) Negativemg/dL (NEGATIVE) Urine Ketones Negativemg/dL (NEGATIVE) Urine Occult Blood Small (NEGATIVE) Urine Nitrite Positive (NEGATIVE) Urine Bilirubin Negative (NEGATIVE) Urine Urobilinogen Normalmg/dL (NORMAL) Urine Leukocyte Esterase Small (NEGATIVE) Urine RBC 0-2/hpf (0-2) Urine WBC 6-10/hpf (0-5) Urine Epithelial Cells Few/hpf (NONE-MOD) Urine Crystals Amorphous urates (NONE Urine Bacteria Many/hpf (NONE-FEW) Urine Hyaline Casts None/lpf (NONE) Urine Granular Casts None seen (NONE SEEN) Urine Waxy Casts None seen (NONE SEEN) Urine Red Blood Cell Casts None seen (NONE SEEN) Urine White Blood Cell Casts None seen (NONE SEEN) Urine Mucus None seen (None Seen) Urine Trichomonas None seen (NONE SEEN) Urine Yeast None (NONE SEEN) Urinalysis Comment None Urine Culture Reflexed Indicated White Blood Count 10.7th/mm3 (3.8-10.1) Red Blood Count 2.73mil/mm3 (3.90-5.20) Hemoglobin 7.4g/dL (12.0-15.6) Hematocrit 24.7% (35.0-46.0) Mean Corpuscular Volume 90.5fL (81-100) Mean Corpuscular Hemoglobin 27.1pg (27.0-35.0) Mean Corpuscular Hemoglobin Concent 30.0% (32.0-37.0) Red Cell Distribution Width 15.5% (12.3-15.4) Platelet Count 210bil/L (150-400) Neutrophils (%) (Auto) 95.4% (40-74) Lymphocytes (%) (Auto) 1.4% (14-46) Monocytes (%) (Auto) 3.0% (4-12) Eosinophils (%) (Auto) 0% (0-5) Basophils (%) (Auto) 0% (0-3) Prothrombin Time 10.8sec (8.1-12.5) Prothromb Time International Ratio 1.01ratio Sodium Level 136mEq/L (134-144) Potassium Level 3.4mEq/L (3.5-5.2) Chloride Level 97mEq/L (97-108) Carbon Dioxide Level 23mmol/L (18-29) Blood Urea Nitrogen 34mg/dL (8-27) Creatinine 0.76mg/dL (0.57-1.00) Estimat Glomerular Filtration Rate 105mL/min (>59) Glucose Level 124mg/dL (60-99) Lactic Acid Level 0.7mmol/L (0.4-2.0) Calcium Level 8.9mg/dL (8.5-10.1) Magnesium Level 1.4mg/dL (1.6-2.6) Total Bilirubin 0.4mg/dL (0.0-1.2) Aspartate Amino Transf (AST/SGOT) 21U/L (0-50) Alanine Aminotransferase (ALT/SGPT) 11U/L (0-32) Alkaline Phosphatase 105U/L (25-165) Troponin T 0.010ug/L (0.0-0.011) Total Protein 6.1g/dL (6.4-8.4) Albumin 2.9g/dL (3.4-5.0) Lipase 11U/L (13-60) Procalcitonin 5.92ng/mL (0.00-0.08) ECG Interpretation ECG Interpretation: Sinus rhythm of 87 LBBB Unchanged from prior on 09/29/16 Time: 19:20 Interpreted by: ED physician Re-Eval/Medical Decision Source of Hx: Old records Re-Evaluation/Progress : Time of Eval: 22:44 Re-Evaluation/Progress Note: Pt rechecked. Informed pt of results and plan for admission. Pt understands and agrees with plan for admission. All questions addressed. Consultation : Referral / Consult Name: Emiliana Pritchard DO Consulted With: Hospitalist Call Returned at: 23:05 Cart Attendant: Will see patient, Agrees with eval, Agrees with plan, Accepts admit Counseled Regarding: Diagnosis, Lab results, Need for admission Discharge & Departure Impression: Primary Impression: Urinary tract infection Urinary tract infection type: acute pyelonephritis Qualified Code: N10 - Acute pyelonephritis Additional Impression: Pelvic cancer Disposition: ADMITTED TO HOSPITAL Discharge Condition All VS Reviewed: Yes Condition: Stable Referrals: Guillermo Clancy DO (PCP) Coretta Attestation Portions of this note were transcribed by Chata Snyder. I, Dr. Bhagat personally performed the history, physical exam and medical decision-making; I reviewed and confirmed the accuracy of the information in the transcribed note. Signed by : Coretta Woodward, 06/07/17. copies to: Guillermo Clancy Todd P DO Jun 07, 2017 18:14 Chata Sadler Jun 07, 2017 18:28
[2017-06-07] MEDS ORDERED: 0.9% Sodium Chloride 1,000 ML IV ONE (18:28)
[2017-06-07] MEDS: HYDROmorphone 0.5 mg/0.5 mL iSecure Syringe IVPUSH PRN ×3 (19:02→22:21)
[2017-06-07 19:16] LABS: APPEARANCE,URINE HAZY (CLEAR,HAZY); COLOR,URINE YELLOW (YELLOW); OCCULT BLOOD,URINE SMALL (NEGATIVE); UROBILINOGEN,URINE NORMAL (NORMAL)
[2017-06-07] MEDS ORDERED: Piperacillin-Tazo 3.375 Gm Inj 3.375 GM in Dextrose 5% Minibag Plus 50 ML IV ONE (19:20)
[2017-06-07] MEDS ORDERED: Iohexol 300 mg/mL 30 mL Inj PO ONE (19:35)
[2017-06-07 20:59] LABS: BASOPHILS % (AUTO) 0 % (0-3); EOSINOPHILS % (AUTO) 0 % (0-5); Mean Corpuscular Hemoglobin 27.1 pg (27.0-35.0); Mean Corpuscular Volume 90.5 fL (81-100); NEUTROPHILS % (AUTO) 95.4 % (40-74); Platelet Count 210 bil/L (150-400)
[2017-06-07 21:24] LABS: INR 1.01 ratio
[2017-06-07 21:32] LABS: TROPONIN T 0.01 ug/L (0.0-0.011)
[2017-06-07 21:43] LABS: Magnesium 1.4 mg/dL (1.6-2.6)
[2017-06-07 23:14] VITALS: BP 94/48; PULSE 74; RESP 20; O2SAT 96
[2017-06-07] MEDS ORDERED: 0.9% Sodium Chloride 1,000 ML IV SCH (23:26)
[2017-06-07] MEDS ORDERED: LORA0.5T PO (23:29)
[2017-06-07] MEDS ORDERED: ONDA-53 PO (23:29)
[2017-06-07] MEDS ORDERED: Alum-Mag Hydrox-Simeth 30 mL Suspension PO PRN (23:30)
[2017-06-07] MEDS ORDERED: Polyethylene Glycol (PEG) 17 Gm Powder PO PRN (23:30)
[2017-06-07] MEDS ORDERED: FOLI1TAB18 PO (23:30)
[2017-06-07] MEDS ORDERED: Ondansetron 2 mg/mL 2 mL Inj IVPUSH PRN (23:30)
--- NOTE | 2017-06-07 23:59 | PCM.HPMED ---
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 Patient states that the chills started last night and a measured temperature this morning of 103. She denies overt changes to her urine output or changes in color or cloudiness. She did have one bout of nonbloody emesis today. Patient does not have a UTI since ileostomy was performed back in October 2016. Patient denies chest pain, shortness of breath, dizziness, lightheadedness, confusion, increased abdominal pain, hematochezia or melena. Patient is currently undergoing chemotherapy with Dr. Kay. She was previously on gemcitabine and cisplatin the tumor recurred, invading the bone. Per oncology's last note she is being set up for palliative radiation therapy. Discussion with the patient about her treatment going forward demonstrated that she expects to be cured of her current situation and denies that this is a palliative measure. She has not yet started radiation but that is currently in the works to help alleviate the pain from the bone invasion. In the emergency department CT of the abdomen was obtained and apparently shows very minimal decline in tumor burden. Chest x-ray was clear. White count was slightly elevated 10.7 and the patient has anemia with hemoglobin of 7.4. There is a significant neutrophil shift. Patient also percussed time 5.29. Urinalysis from the ostomy demonstrates a positive nitrite, leukocyte esterase, and many bacteria. This is currently being sent for culture. Patient was started on Zosyn and given 1 L of normal saline. Patient was given Dilaudid for pain. Review of Systems: Complete review of systems performed; pertinent positives and negatives per history of present illness, all other systems reviewed and are negative Allergies Coded Allergies: No Known Allergies (Unverified , 05/13/16) Home Medications Acetaminophen/Diphenhydramine (Tylenol Pm Ex-Strength Caplet) 500 Mg-25 Mg Tablet 1 EACH PO TID Ascorbate Calcium (Vitamin C) 500 Mg Tablet 500 MG PO DAILY Calcium Carbonate (Calcium) 600 Mg Tablet 600 MG PO DAILY Cholecalciferol (Vitamin D3) (Vitamin D3) 2,000 Unit Capsule 2,000 UNIT PO DAILY Vit A/Vit C/Vit E/Zinc/Copper (Preservision Areds Tablet) 1 Each Tablet 2 EACH PO BID Hydrocodone-Acetaminophen 5-325 mg (Hydrocodone-Acetaminophen 5-325 mg) 1 Each Tablet 1-2 TABLET PO Q4H PRN PRN For Pain PMH 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 s/p chemotherapy (cisplatin and gemcitabine) and radical cystectomy, urethrectomy, total hysterectomy, and bilateral pelvic lymph node dissection Heart murmur, benign Hypertension Osteopenia Surgical History Hysterectomy Urethrectomy Medical cystectomy Bilateral lymph node dissection with neobladder Ileostomy Family History Mother of pneumonia; at that time she also had leukemia Father at the age of 90 Social History Hx Alcohol Use: No Hx Substance Use: No Smoking Status: Never Smoker Living Arrangement: Alone Exam Vital Signs Vital Sign - Last Date Time Temp Pulse Resp B/P Pulse Ox O2 Delivery O2 Flow Rate FiO2 06/07/17 23:14 74 20 94/48 96 Room Air 06/07/17 17:16 37.6 Exam General: Pleasant female in no acute distress; mildly cachectic HEENT: PERRLA, EOMI, nonicteric, membranes dry Lymph: No lymphadenopathy Cardio: Regular rate and rhythm 2/6 murmur over the left sternal border Respiratory: CTA bilaterally, no wheezes, no crackles Abdomen: Soft, positive bowel sounds, mild guarding but no tenderness or distention; ostomy site is intact and urine appears mostly clear and yellow Extremities: No edema Psych: Appropriate mood and affect Neuro: CN II through XII grossly intact, sensation intact throughout Skin: No rash Lab and Diagnostics Result Diagram: 06/07/17204106/07/172041 X-Rays, CTs and MRIs Chest x-ray Official read pending; no apparent consolidations; mild hyperinflation Abdominal CT; official read pending Assessment & Plan 77-year-old female with ongoing invasive urothelial carcinoma presents with ongoing fever, chills, and one episode of emesis that began last night UTI; present on admission; ongoing -UA positive for leukocyte esterase and nitrites as well as bacteria from what should be a sterile environment -Ostomy bag looks intact and without leaks; urine looks mostly clear and yellow -Additional possibilities are not intra-abdominal infection around the tumor -Small white count for heart rate and respiratory rate under control; no objective fevers here but reported 103 at home -Procalcitonin of 5.92; -Started on Zosyn -Given 2 L normal saline patient also appears dry; fluids running at 125 mL per hour overnight; recommend adjustment in a.m. -Urine and blood cultures pending; change antibiotics once -Recheck labs in a.m. Invasive urothelial carcinoma with recurrence; present on admission; ongoing -Previously had gemcitabine and cisplatin as well as hysterectomy, cystectomy, and urethrectomy -Last oncology note with Dr. Kay indicated that the patient is undergoing palliative radiation and chemotherapy -Patient believes that she will be cured after undergoing these treatments despite what is documented in the last oncology note -Recommend contacting oncology in the morning -Continue home ondansetron, lorazepam, and hydrocodone Anemia likely second to chemotherapy; prednisone admission; ongoing -Patient was recently on gemcitabine and currently on cisplatin; possibly also due to malnutrition -Trend in a.m. -Transfuse at hemoglobin 7 -Iron/B12 ordered Hyperglycemia; present on admission; ongoing -Likely due to pain associated with her cancer -We will hold off on starting insulin at this time -Continue to trend Hypomagnesemia and hypokalemia-replace with IV mag and by mouth potassium Hypertension-Currently not on medication and not hypertensive Disposition: Patient is being admitted to inpatient status with expected length of stay greater than two midnights due to to severity of presentation, duration of treatment, and risks of adverse events disposition Pain Evaluation: Adequate Pain Control VTE Prophylaxis: Sub-Q Heparin (Unfractionated) Resuscitation Status: CPR: Attempt Resuscitation Attending Statement The patient was seen and examined together with house staff on 06/08/2017 and I agree with the history, exam and plan as outlined in the note above. Guillermo Torres DO Jun 07, 2017 23:59 Emiliana Pritchard DO Jun 08, 2017 04:18
[2017-06-08] VITALS (7 sets, daily range): BP systolic 100–139; BP diastolic 46–68; PULSE 71–84; RESP 16–20; O2SAT 96–99
[2017-06-08] MEDS ORDERED: Magnesium Sulf 2 Gm/50mL Water 2 GM in IV Premix 1 EACH IV ONE (00:10)
[2017-06-08] MEDS ORDERED: LORazepam 0.5 mg Tablet PO PRN (00:10)
[2017-06-08] MEDS ORDERED: Piperacillin-Tazo 3.375 Gm Inj 3.375 GM in Dextrose 5% Minibag Plus 50 ML IV SCH (00:30)
[2017-06-08] MEDS: Sodium Chloride LOK Flush 10 mL Syringe IVFLUSH SCH ×3 (00:30→15:43)
[2017-06-08] MEDS: 0.9% Sodium Chloride 1,000 ML IV SCH ×2 (01:40→12:02)
[2017-06-08] MEDS: Heparin 5,000 Unit/mL Inj SUBQ SCH ×3 (01:52→16:47)
[2017-06-08] MEDS: Piperacillin-Tazo 3.375 Gm Inj 3.375 GM in Dextrose 5% Minibag Plus 50 ML IV SCH ×3 (04:30→20:36)
--- NOTE | 2017-06-08 05:19 | NUR ---
Admit to Room 1007 Patient arrived to room 1007 at [facility] accompanied by ED staff and daughter. VSS. No complaints of pain. Patient cooperative with assessment questions. Urostomy bag emptied x2 by RN . Patient stated she could empty herself if needed. IV fluids started. Call light within reach. Care continues.
[2017-06-08 05:43] LABS: BASOPHILS % (AUTO) 0.2 % (0-3); EOSINOPHILS % (AUTO) 0.2 % (0-5); MONOCYTES % (AUTO) 5.6 % (4-12); Mean Corpuscular Hemoglobin 26.8 pg (27.0-35.0); Mean Corpuscular Volume 90.2 fL (81-100); NEUTROPHILS % (AUTO) 89.6 % (40-74); Platelet Count 207 bil/L (150-400)
[2017-06-08 06:16] LABS: Magnesium 2.1 mg/dL (1.6-2.6)
[2017-06-08] MEDS: Potassium Chloride 20 mEq SR Tablet PO SCH (07:47)
--- NOTE | 2017-06-08 07:48 | DRSVH ---
PROCEDURE: X-RAY CHEST ONE VIEW, PORTABLE ([id number]) INDICATIONS: FEVER, CHEMO TECHNIQUE: One view of the chest was acquired. COMPARISON: None. FINDINGS: Surgical changes and devices: Right PICC tip in the mid SVC. Lungs and pleura: No pleural effusions or pneumothorax. Lungs are clear. Mediastinum: Mediastinal contours appear normal. Heart size is normal. Bones and chest wall: No suspicious bony lesions. Overlying soft tissues appear unremarkable. IMPRESSION: Right PICC tip in the mid SVC. No radiographic evidence of acute cardiopulmonary patholog y. Dictated by: Tanmay Lazo M.D. on 06/08/2017 at 7:45 Approved by: Tanmay Lazo M.D. on 06/08/2017 at 7:46
[2017-06-08] MEDS: HYDROcodone-APAP 5-325 mg Tablet PO PRN ×4 (07:53→20:37)
--- NOTE | 2017-06-08 08:06 | DRSVH ---
PROCEDURE: CT ABDOMEN AND PELVIS WITH CONTRAST ([id number]) INDICATIONS: fever, LLQ pain, bladder ca, chemo TECHNIQUE: After the administration of oral and intravenous contrast, 5 mm thick sections acquired from the diap hragms to the symphysis. 5 mm thick coronal and sagittal reformats were performed. For radiation do se reduction, the following was used: automated exposure control, adjustment of mA and/or kV accordi ng to patient size. COMPARISON: Head CT 05/12/2017; CT CAP 04/19/2017 FINDINGS: Preliminary report by shift supervisor rn radiology Image quality: Excellent. ABDOMEN: Lung bases: Lung bases are clear except for stranding densities compatible with atelectasis or scar. Known bilateral upper lobe pulmonary nodules are not included. Heart size is normal. Solid organs: Liver and spleen are normal in size and enhancement. Gallbladder is distended without evidence of stones or wall thickening.. Biliary system is non-dilated. Pancreas enhances normally. No adrenal nodules. Kidneys are normal in size and enhancement, without hydronephrosis. Focal hype rdensities in the right lower pole and left mid kidney representing either nonobstructing calculi or early post contrast opacification. Peritoneum and bowel: Stomach, small bowel, and colon loops are normal in caliber and wall thickness . No free fluid or air. Nodes and vessels: No retroperitoneal or mesenteric adenopathy. Aorta and inferior vena cava are no rmal in caliber. Miscellaneous: No ventral hernias. 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 Surgical clips in the pelvis bilaterally. 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 Along the inf erolateral margin of the mass, such as series 2/image 61, there is likely tumor invasion of the sigmo id colon, causing no apparent obstruction at this time. Sigmoid diverticulosis is also present, diver ticulitis unlikely but not excluded. Miscellaneous: No inguinal hernias or adenopathy. There is edema in the left obturator internus musc le caudal to the left hemipelvic tumor, possibly related to therapy. Bones: No suspicious bony lesions. No vertebral body compression fractures. IMPRESSION: 1. Large, centrally necrotic tumor mass in the left hemipelvis measures slightly larger than on previ ous exams. There is evidence of direct bony invasion of the left hemipelvis and suspected invasion of the adjacent sigmoid colon without secondary obstruction at this time. Edematous enlargement of the left obturator internus is noted caudal to the mass. Possible soft tissue involvement was not noted o n the preliminary report. 2. Sigmoid diverticulosis. Diverticulitis is doubted but cannot be excluded. 3. Postoperative changes of cystectomy, ureteral diversion and ileal conduit with right lower quadran t ostomy. Dictated by: Prabhakar Mayer M.D. on 06/08/2017 at 7:44 Approved by: Prabhakar Mayer M.D. on 06/08/2017 at 8:04
[2017-06-08] MEDS ORDERED: HYDROmorphone 0.5 mg/0.5 mL iSecure Syringe IVPUSH PRN (08:30)
--- NOTE | 2017-06-08 13:57 | NUR ---
Radiation, GI, pain, and ileostomy Outpatient radiation was cancelled this morning due to pt's hospitalization. Hospitalist and oncology to decide future radiation plan. Pt. reported constipation. PRN Miralax and Senna were given. Pt. had one very small BM per bedpan in the early afternoon. Will continue to monitor GI BM and continue PRN bowel laxatives. Pt. was given PRN Narco (same as home dose) for L. pelvic and LLE pain. She reported her pain was tolerable with current pain treatment. Ileostomy was converted to drain into a Jensen bag. Urine color is pale clear with min. mucus threads.
[2017-06-08] MEDS ORDERED: Sodium Chloride LOK Flush 10 mL Syringe IVFLUSH PRN ×2 (14:35)
[2017-06-08] MEDS ORDERED: Potassium Chloride 20 mEq SR Tablet PO ONE (15:45)
--- NOTE | 2017-06-08 16:08 | PCM.PNMED ---
"Subjective Date of Service Jun 08, 2017 Subjective Dose feel a bit better today, chills gone, bit stronger. No emesis, fever down. >100,000 gram neg rods urine. Exam Vital Signs Vital Sign - Last Date Time Temp Pulse Resp B/P Pulse Ox O2 Delivery O2 Flow Rate FiO2 06/08/17 12:19 36.7 71 18 121/54 98 Room Air Intake and Output 06/07/17 06/07/17 06/08/17 Cumulative From/Thru 15:00 23:00 07:00 06/07/17 17:16 - 06/08/17 06:24 Intake Total 1000 ml 1047 ml 2047 ml Output Total 850 ml 850 ml Balance 1000 ml 197 ml 1197 ml Intake Oral 420 ml 420 ml IV Total 1000 ml 627 ml 1627 ml Output Urine Total 850 ml 850 ml Exam Skin warm and dry HENT; adequate hydation, no lesions CV; reg 2-3/6 sustoloc murmur Resp; clear GI; soft, non acute, non tender Extremitie; some edema on the left (chronic no change)| neuro; cn 2-12 intact no focal defects, Lab and Diagnostics Result Diagram: 06/08/17 0531 06/08/17 0531 X-Rays, CTs and MRIs Chest x-ray Official read pending; no apparent consolidations; mild hyperinflation Abdominal CT; official read pending Assessment & Plan 77-year-old female with ongoing invasive urothelial carcinoma presents with ongoing fever, chills, and one episode of emesis that began last night UTI; present on admission; improving -UA positive for leukocyte esterase and nitrites as well as bacteria from what should be a sterile environment -Ostomy bag looks intact and without leaks; urine looks mostly clear and yellow -Procalcitonin of 5.92; -> 100,000 gram neg rods -for today continue zosyn (day #2) adjust antibiotics when sensitivites back Invasive urothelial carcinoma with recurrence; present on admission; stable -Previously had gemcitabine and cisplatin as well as hysterectomy, cystectomy, and urethrectomy -Last oncology note with Dr. Kay indicated that the patient is undergoing palliative radiation and chemotherapy -Patient believes that she will be cured after undergoing these treatments despite what is documented in the last oncology note -Continue home ondansetron, lorazepam, and hydrocodone -patient cleared for Radiation therapy tomorrow Anemia likely second to chemotherapy; prednisone admission; stable -Patient was recently on gemcitabine and currently on cisplatin; possibly also due to malnutrition -Trend in a.m. -Transfuse at hemoglobin 7 -Iron/B12 ordered (OK) Hyperglycemia; present on admission; resolved -Likely due to pain associated with her cancer -We will hold off on starting insulin at this time -Continue to trend Hypomagnesemia and hypokalemia -replace with IV mag and by mouth potassium Hypertension -Currently not on medication and not hypertensive Disposition: Patient is being admitted to inpatient status with expected length of stay greater than two midnights due to to severity of presentation, duration of treatment, and risks of adverse events disposition VTE Prophylaxis: Sub-Q Heparin (Unfractionated) Resuscitation Status: CPR: Attempt Resuscitation David Ellison MD Jun 08, 2017 16:08"
[2017-06-08] MEDS: Polyethylene Glycol (PEG) 17 Gm Powder PO SCH (16:10)
[2017-06-08] MEDS: D5 0.9% NaCl + KCl 20 mEq/L 1,000 ML IV SCH (16:45)
--- NOTE | 2017-06-08 17:19 | NUR ---
Social Work-initial assessment/multidisciplinary rounds: Data:See initial assessment. Pt is a 77 y/o female who was admitted on 06/07/17 for UTI and necrotic pelvic mass per H&P. Pt's insurance is [employer] and PCP is Guillermo Clancy MD. EMR Reviewed. LILLIAN met with pt at bedside, SW role explained. Pt is alert and oriented x3. Pt resides at home alone on [address] where she remains independent with basic ADLs. Pt uses a fww at baseline and has not been driving. Pt has history with HH, but cannot remember the company name and has no SNF history. Pt has no termite helper care insurance or VA benefits. SW discussed DPOA/ advanced directive, pt states she has completed this, SW encouraged a copy to be brought in. Pt has ostomy since October that she manages on her own at home. Pt to start chemo and radiation and her oncologist is Dr. Ruff. Pt states that she and her family have spoken with her insurance and understand that [facility] is contracted with her insurance. Pt states she thinks she may need SNF at discharge. SW explained this process to pt and explained that MD orders would be needed and pt would also need to have a skillable need. Pt may benefit from PT. SW explained to pt that SW would follow up with pt again. SW provided pt with discharge planning checklist and encouraged pt to call with any questions, phone number provided on white board in room. Pt declined having SW call her daughters today. SW will continue to follow. Assessment:home vs SNF. Plan:Anticipate pt to return home with HH vs SNF. No MD orders have been obtained at this time. Pt may benefit from PT evaluation. LILLIAN will continue to follow. DEIDRA Rodarte Addendum: 06/08/17 at 1728 by GEOFFREY KENNEDY Amended: Links added.
[2017-06-09 00:20] VITALS: BP 107/53; PULSE 77; RESP 22; O2SAT 96
[2017-06-09] MEDS: Sodium Chloride LOK Flush 10 mL Syringe IVFLUSH SCH ×4 (00:30→22:55)
[2017-06-09] MEDS: Heparin 5,000 Unit/mL Inj SUBQ SCH ×3 (01:14→16:37)
--- NOTE | 2017-06-09 02:11 | NUR ---
Patient Tearful During assessment, patient shared that per Dr. Guardado , radiation is for palliative care only. Patient became very tearful. Patient expressed that she does not want to be a burden to her family and would like to live longer to be a grandma to her youngest grandchild. Patient apologized for being tearful. RN listened to concerns. VSS. Patient stated pain 6/10 on pain scale. Pain medication administered. Call light within reach. Care continues.
[2017-06-09] MEDS: Piperacillin-Tazo 3.375 Gm Inj 3.375 GM in Dextrose 5% Minibag Plus 50 ML IV SCH ×2 (04:42→13:24)
[2017-06-09] MEDS: HYDROcodone-APAP 5-325 mg Tablet PO PRN ×6 (05:23→22:25)
[2017-06-09 06:10] VITALS: BP 124/65; PULSE 80; RESP 18; O2SAT 96
[2017-06-09 08:47] LABS: Mean Corpuscular Hemoglobin 27.3 pg (27.0-35.0); Mean Corpuscular Volume 89.2 fL (81-100)
[2017-06-09] MEDS: Potassium Chloride 20 mEq SR Tablet PO SCH (09:55)
[2017-06-09] MEDS: Polyethylene Glycol (PEG) 17 Gm Powder PO SCH (09:56)
--- NOTE | 2017-06-09 10:14 | NUR ---
Radiation Pt left with [facility] transport to radiation. VSS, NICK, A&O x 3. Urostomy patent and draining to jj bag. Pain medications given prior to leaving floor.
[2017-06-09] MEDS ORDERED: 0.9% Sodium Chloride 500 ML IV ONE ×2 (13:45→16:00)
[2017-06-09] MEDS ORDERED: SODIUM CHLORIDE 0.9% IV ONE (13:45)
[2017-06-09] MEDS ORDERED: CISPLATIN IV ONE (13:45)
[2017-06-09] MEDS ORDERED: Palonosetron 0.05 mg/mL 5 mL Inj IV ONE (13:50)
[2017-06-09] MEDS ORDERED: Dexamethasone Inj 10 MG in 0.9% Sodium Chloride 50 ML IV ONE (13:50)
[2017-06-09 14:21] VITALS: BP 126/66; PULSE 80; RESP 18; O2SAT 96
[2017-06-09] MEDS: D5 0.9% NaCl + KCl 20 mEq/L 1,000 ML IV SCH (16:37)
--- NOTE | 2017-06-09 16:59 | NUR ---
spiritual care: pt request brief visit, pt reported feeling better and was anticipating her walk with PT. family in room. pt agreeable for brief visit from caring electrical prospecting supervisor
--- NOTE | 2017-06-09 19:31 | NUR ---
Activity Pt returned from radiation midday, tolerated well, but had increasing pain from waiting longer between pain medication doses. Left leg is swollen and pt declined to walk today other than to BR or to get in w/c. Pt positioned for comfort multiple times. Care continues.
[2017-06-09] MEDS: cefTRIAXone Inj 1,000 MG in Dextrose 5% Minibag Plus 50 ML IV SCH ×2 (19:33→22:20)
[2017-06-09 20:29] VITALS: BP 111/55; PULSE 80; RESP 18; O2SAT 97
--- NOTE | 2017-06-09 21:45 | PCM.PNMED ---
"Subjective Date of Service Jun 08, 2017 Subjective This is a 77 F with UTI and a urethral carcinoma that has recurred, cx showed gram neg rods. She was on zosyn. Dr. Kay is her oncologist and has seen the pt in the hospital. She has received radiation therapy today. She has both radiation and chemo tomorrow. She says that she has not participated in PT/OT due to several disruptions during the day but she will participate tomorrow. No other concerns Exam Vital Signs Vital Sign - Last Date Time Temp Pulse Resp B/P Pulse Ox O2 Delivery O2 Flow Rate FiO2 06/08/17 20:20 36.8 80 20 139/68 98 Room Air Intake and Output 06/07/17 06/07/17 06/08/17 Cumulative From/Thru 14:59 22:59 06:59 06/07/17 17:16 - 06/08/17 06:24 Intake Total 1000 ml 1047 ml 2047 ml Output Total 850 ml 850 ml Balance 1000 ml 197 ml 1197 ml Intake Oral 420 ml 420 ml IV Total 1000 ml 627 ml 1627 ml Output Urine Total 850 ml 850 ml Exam Skin warm and dry HENT; adequate hydation, no lesions CV; reg 2-3/6 sustoloc murmur Resp; clear GI; soft, non acute, non tender Extremitie; some edema on the left (chronic no change)| neuro; cn 2-12 intact no focal defects, MSK: Equal4/5 finger supervisor delivery department strength IVs and Medications IV Fluids Vital signs : 36.8C, pulse 80, respirations 18, blood pressure 124/65, pulse ox 96% on room air Skin warm and dry HENT; adequate hydation, no lesions CV; reg 2-3/6 sustoloc murmur Resp; clear GI; soft, non acute, non tender Extremitie; some edema on the left (chronic no change)| neuro; cn 2-12 intact no focal defects, Medications Reviewed: Medications were reviewed in detail Lab and Diagnostics Laboratory Tests Test 06/09/17 08:30 White Blood Count 6.7th/mm3 (3.8-10.1) Red Blood Count 2.60mil/mm3 (3.90-5.20) Hemoglobin 7.1g/dL (12.0-15.6) Hematocrit 23.2% (35.0-46.0) Mean Corpuscular Volume 89.2fL (81-100) Mean Corpuscular Hemoglobin 27.3pg (27.0-35.0) Mean Corpuscular Hemoglobin Concent 30.6% (32.0-37.0) Red Cell Distribution Width 15.0% (12.3-15.4) Platelet Count 185bil/L (150-400) Sodium Level 138mEq/L (134-144) Potassium Level 3.2mEq/L (3.5-5.2) Chloride Level 99mEq/L (97-108) Carbon Dioxide Level 25mmol/L (18-29) Blood Urea Nitrogen 17mg/dL (8-27) Creatinine 0.72mg/dL (0.57-1.00) Estimat Glomerular Filtration Rate 112mL/min (>59) Glucose Level 137mg/dL (60-99) Calcium Level 8.7mg/dL (8.5-10.1) Microbiology 06/07/17 Blood Culture - Preliminary, Resulted No growth at 2 days; culture examined... 06/07/17 Urine Culture - Final, Complete Enterobacter Cloacae Complex Result Diagram: 06/08/1731 06/08/17530 X-Rays, CTs and MRIs Chest x-ray Official read pending; no apparent consolidations; mild hyperinflation Abdominal CT; official read pending Assessment & Plan 77-year-old female with ongoing invasive urothelial carcinoma presents with ongoing fever, chills, and one episode of emesis that began last night UTI; present on admission; improving -UA positive for leukocyte esterase and nitrites as well as bacteria from what should be a sterile environment -Ostomy bag looks intact and without leaks; urine looks mostly clear and yellow -Procalcitonin of 5.92; could be due to cancer -> 100,000 gram neg rods -Based on sensitivities, switched her from Zosyn to ceftriaxone. -May go home on Cipro PO Invasive urothelial carcinoma with recurrence; present on admission; stable -Previously had gemcitabine and cisplatin as well as hysterectomy, cystectomy, and urethrectomy -Last oncology note with Dr. Kay indicated that the patient is undergoing palliative radiation and chemotherapy. Patient believes that she will be cured after undergoing these treatments despite what is documented in the last oncology note -Continue home ondansetron, lorazepam, and hydrocodone -patient underwent Radiation therapy 9/6, expecting to go to both chemotherapy and radiation on 06/10 Anemia likely second to chemotherapy; prednisone admission; stable -Patient was recently on gemcitabine and currently on cisplatin; possibly also due to malnutrition -Trend in a.m. -Transfuse at hemoglobin 7, 7.1 on 06/09 -Iron/B12 ordered (within normal) Hyperglycemia; present on admission; resolved -Likely due to pain associated with her cancer -A1c's are pending -We will hold off on starting insulin at this time -Continue to trend hypokalemia present on admission active -Patient is given by mouth potassium repletion in the a.m. Hypertension chronic presumed stable -Currently not on medication and not hypertensive Disposition: Patient is being admitted to inpatient status with expected length of stay greater than two midnights due to to severity of presentation, duration of treatment, and risks of adverse events disposition. Patient is wanting to get discharged to [facility] possibly tomorrow Pain Evaluation: Adequate Pain Control VTE Prophylaxis: Sub-Q Heparin (Unfractionated) Resuscitation Status: CPR: Attempt Resuscitation Time spent 30 minutes Rosemary Bhardwaj DO Jun 08, 2017 21:47"
--- NOTE | 2017-06-09 23:44 | PROG NOTE ---
[address] [address] PROGRESS NOTE PATIENT: MACKENZIE EASTMAN : 1940 MR#: [id number] ADMIT: 06/07/2017 JOB ID: [id number] DATE: 06/08/2017 HOSPITAL ROUNDS: This is a 77-year-old woman who was hospitalized on June 07 with rigors, chills and fever, and apparent urinary origin of infection. Her history is that she has had an anterior pelvic exenteration with radical cystectomy, urethrectomy, hysterectomy, bilateral salpingo-oophorectomy, ileal conduit urinary diversion and bilateral pelvic lymph node dissection on October 08, 2016, by Dr. Clark for muscle invasive bladder cancer. She had received preoperative chemotherapy. Subsequent to that, she did well for a time, but then developed severe right-sided sciatic pain and was found to have a mass in the pelvis which was biopsied on April 29, 2017, showing poorly differentiated carcinoma consistent with her primary urothelial carcinoma. The PET-CT scan on May 12, 2017, showed a soft tissue density mass in the left hemipelvis having increased in one month and abnormal FDG uptake with erosive changes in the bony pelvis consistent with skeletal invasion and some nonspecific nodules in the lungs. She was initiated on palliative chemotherapy with weekly cisplatin in anticipation of starting radiation. There was some delay in radiation. The cisplatin dose was 40 mg/m2, or 64 mg. This was delivered on May 27, 2017, and June 03, 2017, the last dose approximately four days prior to her current hospitalization. Currently, she carries diagnoses of: 1. UTI. 2. Invasive urothelial carcinoma with relapse. 3. Anemia. 4. Glucose and electrolyte abnormalities as described by Dr. Ellison and Dr. Bhardwaj. Subjectively, she is quite animated and talkative. She states she feels much better since being admitted and placed on antibiotics. She was quoted as having said she expects to be cured of her cancer, and we discussed this at length, please see comments below. Currently, she has no pain. No fevers, chills, night sweats. No dyspnea. She does not have dysuria because she has an ileal conduit. OBJECTIVE: Her vital signs show a temperature of 36.6, pulse 81, respiratory rate 20, blood pressure 107/55, pulse ox 99% on room air. In general, she appears talkative and comfortable. Head and neck: Moderate alopecia. Pupils equal, round, reactive. No icterus or conjunctivitis. Oral and oropharyngeal mucosa without thrush or lesions. The lungs are clear to auscultation anteriorly and posteriorly. Cardiac: Rhythm is regular without murmur, gallop, rub, JVD or peripheral edema. Abdomen: Soft, nontender, without masses, organomegaly, or ascites. LABORATORY VALUES: The white count is 6.7, hemoglobin 7.4, hematocrit 24.9, and platelets 207. The BUN and creatinine are 28 and 0.77. Electrolytes normal except for potassium 3.3. Albumin a little low at 2.6. Procalcitonin elevated at 6.49. ALT, AST, alkaline phosphatase, bilirubin normal. IMAGING: An abdomen CT was performed on June 07 showing a large centrally necrotic tumor mass in the left hemipelvis somewhat larger than previous exams with some bony invasion. ASSESSMENT AND RECOMMENDATIONS: 1. Urinary tract infection. The patient is improving on antibiotics and is expected to be able to be discharged soon, once she is strong enough. 2. Recurrence in the pelvis of urothelial carcinoma, I explained to the patient that given the bony invasion this is unlikely to be cured, although an excellent response could be afforded with radiation and that chemotherapy would augment that response. She wishes to go forward with this treatment, and because of that, she is set up to return to radiation therapy tomorrow. If her condition is stable, she can receive her next dose of cisplatin at 40 mg/m2, or 64 mg. I have explained to her that palliation is the goal and this is the reason why she was started on cisplatin, and that it is highly likely that this will relapse sometime in the future even if she has excellent response. We will arrange to have her set up with radiation therapy on a daily basis. ADDITIONAL COMMENTS: I did discuss with Dr. Arnold on the day after this visit the pros and cons of adding chemotherapy radiation and we agreed that if the patient's condition allows it that we would continue on with weekly cisplatin low dose as is being administered now.
[2017-06-10] VITALS (7 sets, daily range): BP systolic 118–157; BP diastolic 61–69; PULSE 74–89; RESP 16–18; O2SAT 94–97
[2017-06-10] MEDS: Heparin 5,000 Unit/mL Inj SUBQ SCH ×3 (00:40→16:41)
[2017-06-10] MEDS: HYDROcodone-APAP 5-325 mg Tablet PO PRN ×5 (04:04→20:16)
--- NOTE | 2017-06-10 04:40 | NUR ---
Activity/Pain Pt has been receiving Q4H PRN PO [place] for c/o pain 4 to 6 out of 10 to pelvis and left leg/ankle. Leg remains moderately edematous, non-pitting. Pt has severe decrease in strength to LLE. Needs help to move LLE in bed and to re-position. Pt is currently being treated with RT and is scheduled to begin chemo today on OSC after RT at 10am.
--- NOTE | 2017-06-10 07:44 | NUR ---
Social Work: Continued D/C Planning (Late Note) Data: EMR reviewed. Pt is on day 3 of hospitalization today. SW met with patient and daughter Annetta at bedside last night. Pt is hopeful that she will be able to go to [facility] after this admission. Discussed with pt and daughter at length the difference between long term care and rehabilitation at a SNF. Discussed the out of pocket cost that may be involved, the process for SNF placement, and the necessity for doctors orders. Explained the criteria for SNF and the possibility that pt's chemo/radiation will be too expensive for the facility. Pt expressed numerous times that she is interested in rehabilitation to increase her strength, mobility, safety, and endurance at home. SW requested that pt work with PT today 06/10/17 and impressed upon the patient the importance of participation in skilled therapies in the SNF. Also discussed long term options including respite bed at [facility], hiring caregivers at home. Provided Senior Resource Guide to patient and daughter at bedside for assistance in long term care coordination. Discussed that pt's needs may supervisor records change time, goals could evolve from rehab to long term depending on pt's disease process and side effects of chemo/radiation. At the end of this conversation, arrived to round on patient. SW to discuss with MD SNF and pt's rehab potential. Social Work will continue to follow for discharge planning needs. Assessment: Pt who is no longer capable of self-care, requiring assistance at home. Plan: SW to discuss with MD SNF and pt's rehab potential. Pt desires to go to [facility] if SNF is appropriate. Social Work will continue to follow for discharge planning needs. DEIDRA Sanford
[2017-06-10] MEDS ORDERED: Potassium Chloride 20 mEq SR Tablet PO ONE (08:25)
[2017-06-10] MEDS: Potassium Chloride 20 mEq SR Tablet PO SCH (09:05)
[2017-06-10] MEDS: Polyethylene Glycol (PEG) 17 Gm Powder PO SCH (09:06)
--- NOTE | 2017-06-10 10:30 | NUR ---
Radiation/Chemo plan Radiation and Chemo have been cancelled today d/t +BC 1/[address] Bhardwaj. Confirmed with Dr. Dash Case. Pt and pt family aware of new plan. Care conts
[2017-06-10] MEDS: Sodium Chloride LOK Flush 10 mL Syringe IVFLUSH SCH ×3 (11:24→23:33)
--- NOTE | 2017-06-10 11:38 | NUR ---
SHELTER TRANSFER : Gave access and faxed facesheet to [facility] per PLANNING ADVISOR and MD order. Patient likely ready in 1-2days
--- NOTE | 2017-06-10 11:43 | NUR ---
Social Work- Continued D/C Planning/Multidisciplinary Rounds Data: EMR reviewed. Pt is on day 3 of hospitalization. Pt discussed in multidisciplinary rounds, pt is not medically ready to discharge today. PT has evaluated pt, recommending SNF. Discussed SNF with , MD agreeable that pt requires strengthening and medical management. SNF order acknowledged. Patient made it clear yesterday that she would prefer to go to [facility]. HOUSE PAINTER asked to make referral to [facility]. SW awaiting acceptance from [facility]. Pt will require insurance authorization prior to d/c. SW will continue to follow. Assessment: Pt for whom SNF is medically necessary Plan: Referral made to [facility]. SW awaiting acceptance from [facility]. Pt will require insurance authorization prior to d/c. SW will continue to follow. DEIDRA Sanford Addendum: 06/10/17 at 1643 by SU WHITFIELD SS Referral confirmed by Vasquez at [facility]. [facility] is reviewing. Pt and daughter updated at bedside. Paperwork in chart, PASRR in folder. DEIDRA Sanford
[2017-06-10] MEDS ORDERED: 0.9% Sodium Chloride 500 ML IV ONE ×2 (14:00)
[2017-06-10] MEDS ORDERED: SODIUM CHLORIDE 0.9% IV ONE (14:00)
[2017-06-10] MEDS ORDERED: Dexamethasone Inj 10 MG in 0.9% Sodium Chloride 50 ML IV ONE (14:00)
[2017-06-10] MEDS ORDERED: CISPLATIN IV ONE (14:00)
[2017-06-10] MEDS ORDERED: Palonosetron 0.05 mg/mL 5 mL Inj IV ONE (14:00)
[2017-06-10] MEDS: D5 0.9% NaCl + KCl 20 mEq/L 1,000 ML IV SCH (14:33)
--- NOTE | 2017-06-10 15:26 | NUR ---
Inpatient Ostomy Nurse Patient seen for assistance with urostomy. She states that she normally changes system twice weekly and today is scheduled day for change. Patient has had urostomy for about 9 months. Although she is highly anxious and completed multiple steps repetitively and unnecessarily, her peristomal skin is in excellent condition and stoma is firm, pink, and healthy. Patient's regimen is more complicated than necessary but it works for her and she appears to enjoy tending to the ostomy and the system. CWON RN offered a knotter hand when needed, otherwise patient completed all steps of system change without complication. The protuberant tumor may make wafer adhesion challenging, patient may eventually be benefitted with more flexible system, but for now, her floating flange [place] system is adequate. [facility] will remain available as resource for patient and staff but no specific ostomy care from [facility] is needed at this time.
[2017-06-10] MEDS: cefTRIAXone Inj 1,000 MG in Dextrose 5% Minibag Plus 50 ML IV SCH (20:15)
--- NOTE | 2017-06-10 21:16 | PCM.PNMED ---
"Subjective Date of Service Jun 10, 2017 Subjective Patient is seen and examined. She states that she is feeling much better today was able to work with physical therapy. Discussed diagnosis, workup, imaging, and treatment plan with patient and daughter. They expressed an verbalized their understanding. Patient has some groin pain in the left side that is her baseline she. She states that she also gets some neuropathic pain due to her tumor pushing on the nerves on that side. No other concerns. Exam Vital Signs Vital Sign - Last Date Time Temp Pulse Resp B/P Pulse Ox O2 Delivery O2 Flow Rate FiO2 06/10/17 20:15 36.7 87 17 157/68 97 Room Air Intake and Output 06/09/17 06/09/17 06/10/17 Cumulative From/Thru 15:00 23:00 07:00 06/07/17 17:16 - 06/10/17 04:57 Intake Total 1036 ml 507 ml 1236 ml 7481 ml Output Total 1650 ml 1200 ml 4850 ml Balance -614 ml 507 ml 36 ml 2631 ml Intake Oral 1036 ml 676 ml 3124 ml IV Total 507 ml 560 ml 4357 ml Output Urine Total 1650 ml 1200 ml 4850 ml # Bowel Movements 1 0 2 Exam Skin warm and dry HENT; adequate hydation, no lesions CV; reg 2-3/6 sustoloc murmur Resp; clear GI; soft, non acute, non tender Extremitie; some edema on the left (chronic no change)| neuro; cn 2-12 intact no focal defects, MSK: Equal4/5 finger medical office coordinator strength Lab and Diagnostics Result Diagram: 06/10/17 0715 06/10/17 0715 X-Rays, CTs and MRIs Chest x-ray Official read pending; no apparent consolidations; mild hyperinflation Abdominal CT; official read pending Assessment & Plan 77-year-old female with ongoing invasive urothelial carcinoma presents with ongoing fever, chills, and one episode of emesis that began last night Gram-negative bacteremia likely due to UTI, present on admission -- 06/10 10/07 blood cultures are positive with gram-negative variable rods -- Will await sensitivities -- Continue ceftriaxone IV UTI; present on admission; improving -UA positive for leukocyte esterase and nitrites as well as bacteria from what should be a sterile environment -Ostomy bag looks intact and without leaks; urine looks mostly clear and yellow -Procalcitonin of 5.92; could be due to cancer -> 100,000 gram neg rods, sensitivities showed sensitivity to ceftriaxone, Cipro -Based on sensitivities, switched her from Zosyn to ceftriaxone on 06/09. -May go home on Cipro PO Invasive urothelial carcinoma with recurrence; present on admission; stable -Previously had gemcitabine and cisplatin as well as hysterectomy, cystectomy, and urethrectomy -Last oncology note with Dr. Kay indicated that the patient is undergoing palliative radiation and chemotherapy. Patient believes that she will be cured after undergoing these treatments despite what is documented in the last oncology note -Continue home ondansetron, lorazepam, and hydrocodone -patient underwent Radiation therapy 06/09, expecting to go to both chemotherapy and radiation on 06/10. Call Dr. Kay, These were withheld due to positive blood cultures Anemia likely secondary to chemotherapy; prednisone admission; stable -Patient was recently on gemcitabine and currently on cisplatin; possibly also due to malnutrition -Trend in a.m. -Transfuse at hemoglobin 7, 7.1 on 06/09 -Iron/B12 ordered (within normal) Hyperglycemia; present on admission; resolved -Likely due to pain associated with her cancer -A1c's are pending -We will hold off on starting insulin at this time -Continue to trend hypokalemia present on admission active -Patient is given by mouth potassium repletion in the a.m. Hypertension chronic presumed stable -Currently not on medication and not hypertensive Disposition: Patient is being admitted to inpatient status with expected length of stay greater than two midnights due to to severity of presentation, duration of treatment, and risks of adverse events. Patient is wanting to get discharged to [facility] in 1-2 days physical therapy has seen patient and recommended discharge to SNF Pain Evaluation: Adequate Pain Control VTE Prophylaxis: Sub-Q Heparin (Unfractionated) VTE Mechanical Devices: Intermittant Pneumatic CD Resuscitation Status: CPR: Attempt Resuscitation Time spent 25 minutes Rosemary Bhardwaj DO Jun 10, 2017 21:16"
[2017-06-11] MEDS: Heparin 5,000 Unit/mL Inj SUBQ SCH ×3 (00:45→16:46)
[2017-06-11] MEDS: HYDROcodone-APAP 5-325 mg Tablet PO PRN ×6 (00:52→20:45)
[2017-06-11 05:00] VITALS: BP 133/73; PULSE 83; RESP 17; O2SAT 95
--- NOTE | 2017-06-11 05:24 | NUR ---
Pain/Nausea Pt c/o of LT hip/leg 5-8/10 on pain scale. Pt given Bishop x 2 and helpful per pt. Pt also c/o nausea and given ODT Zofran which resolved nausea. No further complaints at this time. VSS. Care continues.
[2017-06-11 08:13] VITALS: BP 138/64; PULSE 80; RESP 18; O2SAT 97
[2017-06-11] MEDS: D5 0.9% NaCl + KCl 20 mEq/L 1,000 ML IV SCH (09:32)
[2017-06-11] MEDS: Potassium Chloride 20 mEq SR Tablet PO SCH (09:32)
[2017-06-11] MEDS: Sodium Chloride LOK Flush 10 mL Syringe IVFLUSH SCH ×2 (09:33→16:30)
[2017-06-11] MEDS: Polyethylene Glycol (PEG) 17 Gm Powder PO SCH (09:33)
[2017-06-11] MEDS: 0.9% Sodium Chloride 250 ML IV SCH (11:23)
[2017-06-11 11:46] VITALS: BP 128/56; PULSE 86; RESP 16
[2017-06-11 12:04] VITALS: BP 121/52; PULSE 82; RESP 18
[2017-06-11 14:54] VITALS: BP 111/60; PULSE 79; RESP 16
--- NOTE | 2017-06-11 18:35 | NUR ---
Blood Transfusion Pt tolerated 1 unit PRBC, irradiated, without issue. VSS. A&Ox3. Consent signed prior to start - no questions/concerns prior to start. Went over possible s/sx of blood transfusions - accepting. No issues with blood transfusion. No orders for lab draw post infusion - await lab results in AM. Care continues.
--- NOTE | 2017-06-11 18:53 | PCM.PNMED ---
Subjective Date of Service Jun 11, 2017 Subjective Patient is seen and examined. We discussed transfusion of 1 unit of irradiated PRBC due to her anemia and she verbalized her understanding and approval/ consent. Patient states that she is feeling better. Exam Vital Signs Vital Sign - Last Date Time Temp Pulse Resp B/P Pulse Ox O2 Delivery O2 Flow Rate FiO2 06/11/17 05:00 36.9 83 17 133/73 95 Room Air Intake and Output 06/10/17 06/10/17 06/11/17 Cumulative From/Thru 15:00 23:00 07:00 06/07/17 17:16 - 06/11/17 06:11 Intake Total 2212 ml 2441 ml 04467 ml Output Total 1150 ml 1300 ml 7300 ml Balance 1062 ml 1141 ml 4834 ml Intake Oral 1640 ml 450 ml 5214 ml IV Total 572 ml 1931 ml 6860 ml Tube Irrigant 60 ml 60 ml Output Urine Total 1150 ml 1300 ml 7300 ml # Bowel Movements 0 0 2 Lab and Diagnostics Result Diagram: 06/11/17 0450 06/11/17 0450 X-Rays, CTs and MRIs Chest x-ray Official read pending; no apparent consolidations; mild hyperinflation Abdominal CT; official read pending Assessment & Plan 77-year-old female with ongoing invasive urothelial carcinoma presents with ongoing fever, chills, and one episode of emesis that began last night Gram-negative bacteremia likely due to UTI, present on admission -- 06/10 10/07 blood cultures are positive with gram-negative variable rods -- Will await sensitivities -- Continue ceftriaxone IV UTI; present on admission; improving -UA positive for leukocyte esterase and nitrites as well as bacteria from what should be a sterile environment -Ostomy bag looks intact and without leaks; urine looks mostly clear and yellow -Procalcitonin of 5.92; could be due to cancer -> 100,000 gram neg rods, sensitivities showed sensitivity to ceftriaxone, Cipro -Based on sensitivities, switched her from Zosyn to ceftriaxone on 06/09. -May go home on Cipro PO -Bacteremia as above Invasive urothelial carcinoma with recurrence; present on admission; stable -Previously had gemcitabine and cisplatin as well as hysterectomy, cystectomy, and urethrectomy -Last oncology note with Dr. Kay indicated that the patient is undergoing palliative radiation and chemotherapy. Patient believes that she will be cured after undergoing these treatments despite what is documented in the last oncology note -Continue home ondansetron, lorazepam, and hydrocodone -patient underwent Radiation therapy 06/09, expecting to go to both chemotherapy and radiation on 06/10. Call Dr. Kay, These were withheld due to positive blood cultures Anemia likely secondary to chemotherapy; prednisone admission; stable -Patient was recently on gemcitabine and currently on cisplatin; possibly also due to malnutrition -Hemoglobin is 7.0 on 06/11/17, 1 unit of irradiated PRBC transfused --B12 ordered (within normal) --Notified Dr. Kay of the transfusion and possible d/c tomorrow. He states he will follow up with patient on Wednesday in his clinic and discuss further chemotherapy or radiation Hyperglycemia; present on admission; resolved -Likely due to pain associated with her cancer/stress due to infection -A1c=6.1, non-diabetic hypokalemia present on admission resolved - Patient is repleted as needed -- Continue to monitor Hypertension chronic presumed stable -Currently not on medication and not hypertensive Disposition: Patient is being admitted to inpatient status with expected length of stay greater than two midnights due to to severity of presentation, duration of treatment, and risks of adverse events. Patient is wanting to get discharged to [facility] in 1-2 days physical therapy has seen patient and recommended discharge to [facility] Pain Evaluation: Adequate Pain Control VTE Prophylaxis: Sub-Q Heparin (Unfractionated) VTE Mechanical Devices: Intermittant Pneumatic CD Resuscitation Status: CPR: Attempt Resuscitation Time spent 25 minutes Rosemary Bhardwaj DO Jun 11, 2017 07:33
[2017-06-11] MEDS: cefTRIAXone Inj 1,000 MG in Dextrose 5% Minibag Plus 50 ML IV SCH (20:07)
[2017-06-11 20:24] VITALS: BP 132/54; PULSE 85; RESP 18; O2SAT 98
[2017-06-12] MEDS: Sodium Chloride LOK Flush 10 mL Syringe IVFLUSH SCH ×2 (00:30→08:30)
[2017-06-12] MEDS: Heparin 5,000 Unit/mL Inj SUBQ SCH ×2 (00:50→09:25)
[2017-06-12] MEDS: HYDROcodone-APAP 5-325 mg Tablet PO PRN ×4 (00:52→12:44)
--- NOTE | 2017-06-12 03:25 | NUR ---
Pain/activity Pt reporting left groin and leg pain up to 4/10 which is tolerable for he and has required 1 tab of [place] q4 hrs to keep pain tolerable at 4/10. Urine sample sent to lab to check for iron. Urostomy intact, and draining pale urine. Pt has had two extra large BMs today and reported that the last one was starting to become runny. Pt wanting to hold off on taking stool softeners, will relay info to next nurse.
[2017-06-12] MEDS: D5 0.9% NaCl + KCl 20 mEq/L 1,000 ML IV SCH (04:55)
[2017-06-12 05:14] VITALS: BP 155/69; PULSE 84; RESP 18; O2SAT 96
[2017-06-12] MEDS: Polyethylene Glycol (PEG) 17 Gm Powder PO SCH (08:30)
[2017-06-12] MEDS: 0.9% Sodium Chloride 250 ML IV SCH (09:10)
[2017-06-12] MEDS: Potassium Chloride 20 mEq SR Tablet PO SCH (09:25)
--- NOTE | 2017-06-12 11:00 | NUR ---
Social Work spoke with Vasquez at [facility], they are able to accept pt with Dr. London to follow. Vasquez confirms they did obtain insurance authorization. Vasquez informed SW that pt would have a copay day 1-20 $20.00 and day 21-100 $164.00. LILLIAN provided inform to [facility] who will update family. DEIDRA Rodarte
[2017-06-12] MEDS ORDERED: LORA-302 PO (12:48)
[2017-06-12] MEDS ORDERED: POLY17PO6 PO (12:48)
[2017-06-12] MEDS ORDERED: SENN-133 PO (12:48)
[2017-06-12] MEDS ORDERED: HYDR-4003 PO (12:48)
[2017-06-12] MEDS ORDERED: CIPR500S3 PO (12:51)
--- NOTE | 2017-06-12 12:56 | PCM.DIMED ---
Discharge Instructions Date of Service Jun 12, 2017 Dates of Hospitalization Jun 07, 2017 at 23:17 Discharge Diagnosis Discharge Diagnosis UTI complicated, Anemia due to chemotherapy, Hypomagnesemia, Hypokalemia Call your provider Call your provider for: Fever or Chills, Shortness of breath, Bleeding, Chest pain, Vomitting, Excessive diarrhea, Weakness (unilateral), Other Patient Instructions Patient Instructions Please take priobiotics/Yogurt to avoid diarrhea Patient can be on general diet. Generics may be substituted for meds Patient has no communicable diseases Patient has no oxygen requirements Patient has a ileostomy bag for urination Patient will require PT/OT: Assessment Patient found resting in bed. Consents to PT session but reports having overall a more difficult day than previous days. Patient is understandably emotional throughout session but reports understanding the importance of attempting to mobilize. Patient reports worsening left leg mobility and pain comparative to evaluation session but motivated to attempt mobility. Supine to sit with initial SBA requiring progression to near mod A to successfully bring her left leg out of bed. Patient able to tolerate sitting at EOB for ~ 8-10 minutes with SBA to mod I. Sit to stand transfer training x 2 with SBA to CGA and good UEX assistance to control ascent/descent. Patient reports worsening left knee and hip pain with sitting and WBing with guarded attempts at gait training ~ 10 ft before need to return to bed. Patient declined further attempts at mobility secondary to discomfort and was assisted back to bed with mod/max A and left resting with leg elevated and call button accessible. D/C recommendations continue to be SNF with daily PT/OT services. PT will continue to follow daily as patient is tolerant. Tolerance to Treatment Fair Current Discharge Recommendations [facility] Comment Concern for sitting tolerance secondary to left leg symptoms. Patient has no wound care needs Follow-up plan F/U with the attending at the SNF F/U with Dr. Kay on Wednesday06/15/17 for Chemo/Rad Rosemary Bhardwaj DO Jun 12, 2017 12:56
[2017-06-12 13:10] VITALS: BP 143/74; PULSE 85; RESP 16; O2SAT 97
--- NOTE | 2017-06-12 14:21 | NUR ---
Discharge Pt discharged to [facility]; wheeled off unit to vehicle at 1410 - via [employer] transport services. Discharge packet put together by LILLIAN Mayberry with hard copy scripts provided in packet. Pt A&Ox3, ROMERO, Right single lumen PICC SL, VSS, Pain present but tolerable, Pt and family aware of plan for discharge. All personal belongings in hand at discharge. No questions/concerns re: discharge. Report called to Maria Victoria of [facility].
--- NOTE | 2017-06-12 17:12 | NUR ---
Social Work Note: Discharge Data& Assessment: Per MD pt is medically ready to discharge to [facility] via wheelchair van arranged by the facility. LABOR DELIVERY RN confirmed with Vasquez from [facility] that they are able to accept pt today and recieved insurance authoriation. LABOR DELIVERY RN confirmed with pt and pt daughter at bedside that they are agreeable to the $20 co-pay for days 1-20 and a $164 co-pay for days 21-100. Pt and pt daughter denies any other needs. No other discharge needs or MD orders identified. Plan: Per pt is medically ready to discharge to [facility] via wheelchair van arranged by the facility. All updated and agreeable to plan. DEIDRA Wise
--- NOTE | 2017-06-12 21:40 | PCM.DC.MED ---
"Discharge Summary Date of Service Jun 12, 2017 Dates of Hospitalization Date of Hospital Admission Jun 07, 2017 at 23:17 Date of Discharge: Jun 12, 2017 Providers: Admitting Physician: Emiliana Pritchard DO Primary Care Physician: Guillermo Clancy DO Attending Physician: Rosemary Real DO Diagnosis at Time of Discharge Diagnosis at Time of Discharge UTI complicated, Anemia due to chemotherapy, Hypomagnesemia, Hypokalemia Consultations Oncology, physical therapy Procedures XRay, CTs & MRIs Chest x-ray Official read pending; no apparent consolidations; mild hyperinflation Abdominal CT; official read pending PROCEDURE: CT ABDOMEN AND PELVIS WITH CONTRAST ([id number]) INDICATIONS: fever, LLQ pain, bladder ca, chemo IMPRESSION: 1. Large, centrally necrotic tumor mass in the left hemipelvis measures slightly larger than on previous exams. There is evidence of direct bony invasion of the left hemipelvis and suspected invasion of the adjacent sigmoid colon without secondary obstruction at this time. Edematous enlargement of the left obturator internus is noted caudal to the mass. Possible soft tissue involvement was not noted on the preliminary report. 2. Sigmoid diverticulosis. Diverticulitis is doubted but cannot be excluded. 3. Postoperative changes of cystectomy, ureteral diversion and ileal conduit with right lower quadrant ostomy. Dictated by: Prabhakar Mayer M.D. on 06/08/2017 at 7:44 Approved by: Prabhakar Mayer M.D. 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 Patient states that the chills started last night and a measured temperature this morning of 103. She denies overt changes to her urine output or changes in color or cloudiness. She did have one bout of nonbloody emesis today. Patient does not have a UTI since ileostomy was performed back in October 2016. Patient denies chest pain, shortness of breath, dizziness, lightheadedness, confusion, increased abdominal pain, hematochezia or melena. Patient is currently undergoing chemotherapy with Dr. Gjerset. She was previously on gemcitabine and cisplatin the tumor recurred, invading the bone. Per oncology's last note she is being set up for palliative radiation therapy. Discussion with the patient about her treatment going forward demonstrated that she expects to be cured of her current situation and denies that this is a palliative measure. She has not yet started radiation but that is currently in the works to help alleviate the pain from the bone invasion. In the emergency department CT of the abdomen was obtained and apparently shows very minimal decline in tumor burden. Chest x-ray was clear. White count was slightly elevated 10.7 and the patient has anemia with hemoglobin of 7.4. There is a significant neutrophil shift. Patient also percussed time 5.29. Urinalysis from the ostomy demonstrates a positive nitrite, leukocyte esterase, and many bacteria. This is currently being sent for culture. Patient was started on Zosyn and given 1 L of normal saline. Patient was given Dilaudid for pain. Hospital Course 77-year-old female with ongoing invasive urothelial carcinoma presents with ongoing fever, chills, and one episode of emesis that began last night Gram-negative bacteremia likely due to UTI, present on admission ruled out -- 06/10 10/07 blood cultures are positive with gram-negative variable rods -- I have called the lab on 06/12/17 as there are no sensitivities that came back on this culture, Micro lab informed me that the culture may be growing gram- positive and anaerobic diphtheria, which may very well be a contaminant -- Called and discussed case with Dr. Morgan, who feels it is okay for patient to be discharged to snf on Cipro PO, she was given 7 more days of by mouth antibiotics -- Continue ceftriaxone IV UTI; present on admission; improving -UA positive for leukocyte esterase and nitrites as well as bacteria from what should be a sterile environment -Ostomy bag looks intact and without leaks; urine looks mostly clear and yellow -Procalcitonin of 5.92; could be due to cancer -> 100,000 gram neg rods, sensitivities showed sensitivity to ceftriaxone, Cipro -Based on sensitivities, switched her from Zosyn to ceftriaxone on 06/09. -She will be discharged to [facility] on Cipro PO for 1 week Invasive urothelial carcinoma with recurrence; present on admission; stable -Previously had gemcitabine and cisplatin as well as hysterectomy, cystectomy, and urethrectomy -Last oncology note with Dr. Kay indicated that the patient is undergoing palliative radiation and chemotherapy. Patient believes that she will be cured after undergoing these treatments despite what is documented in the last oncology note -Continue home ondansetron, lorazepam, and hydrocodone -patient underwent Radiation therapy 06/09, expecting to go to both chemotherapy and radiation on 06/10. These were withheld byDr Kay due to positive blood cultures -I have discussed case with Dr. Kay on 06/11, who states that he will follow up with patient on 06/15, and decided to resume chemotherapy/ radiation. Because this is a weekend, this will still be the plan for her follow-up chemoradiation Anemia likely secondary to chemotherapy; prednisone admission; stable -Patient was recently on gemcitabine and currently on cisplatin; possibly also due to malnutrition -Hemoglobin is 7.0 on 06/11/17, 1 unit of irradiated PRBC transfused --B12 ordered (within normal) --Notified Dr. Kay of the transfusion and possible d/c tomorrow. He states he will follow up with patient on Wednesday in his clinic and discuss further chemotherapy or radiation Hyperglycemia; present on admission; resolved -Likely due to pain associated with her cancer/stress due to infection -A1c=6.1, non-diabetic hypokalemia present on admission resolved - Patient is repleted as needed Hypertension chronic presumed stable -Currently not on medication and not hypertensive Disposition: Patient is being admitted to inpatient status with expected length of stay greater than two midnights due to to severity of presentation, duration of treatment, and risks of adverse events. Discussed diagnosis, workup, imaging, and treatment plan with patient and family. They expressed an verbalized their understanding. Exam Vital Signs (Last) Date Time Temp Pulse Resp B/P Pulse Ox O2 Delivery O2 Flow Rate FiO2 06/12/17 05:14 37.0 84 18 155/69 96 Room Air Exam Physical exam: Skin warm and dry HENT; adequate hydation, no lesions CV; reg 2-3/6 sustoloc murmur Resp; clear GI; soft, non acute, non tender Extremitie; some edema on the left (chronic no change)| neuro; no focal defects, Test 06/07/17 19:03 06/07/17 20:42 06/08/17 05:31 06/09/17 08:30 Urine Color Yellow (YELLOW) Urine Appearance Hazy (CLEAR,HAZY) Urine pH 6.0 (5.0-8.0) Urine Specific Laura <1.005 (1.003-1.035) Urine Protein Negativemg/dL (NEG,TRACE) Urine Glucose (UA) Negativemg/dL (NEGATIVE) Urine Ketones Negativemg/dL (NEGATIVE) Urine Occult Blood Small (NEGATIVE) Urine Nitrite Positive (NEGATIVE) Urine Bilirubin Negative (NEGATIVE) Urine Urobilinogen Normalmg/dL (NORMAL) Urine Leukocyte Esterase Small (NEGATIVE) Urine RBC 0-2/hpf (0-2) Urine WBC 6-10/hpf (0-5) Urine Epithelial Cells Few/hpf (NONE-MOD) Urine Crystals Amorphous urates (NONE Urine Bacteria Many/hpf (NONE-FEW) Urine Hyaline Casts None/lpf (NONE) Urine Granular Casts None seen (NONE SEEN) Urine Waxy Casts None seen (NONE SEEN) Urine Red Blood Cell Casts None seen (NONE SEEN) Urine White Blood Cell Casts None seen (NONE SEEN) Urine Mucus None seen (None Seen) Urine Trichomonas None seen (NONE SEEN) Urine Yeast None (NONE SEEN) Urinalysis Comment None Urine Culture Reflexed Indicated Prothrombin Time 10.8sec (8.1-12.5) Prothromb Time International Ratio 1.01ratio Troponin T 0.010ug/L (0.0-0.011) Lipase 11U/L (13-60) Neutrophils (%) (Auto) 89.6% (40-74) Lymphocytes (%) (Auto) 4.2% (14-46) Monocytes (%) (Auto) 5.6% (4-12) Eosinophils (%) (Auto) 0.2% (0-5) Basophils (%) (Auto) 0.2% (0-3) Lactic Acid Level 0.9mmol/L (0.4-2.0) Phosphorus Level 3.0mg/dL (2.5-4.9) Magnesium Level 2.1mg/dL (1.6-2.6) Total Bilirubin 0.2mg/dL (0.0-1.2) Aspartate Amino Transf (AST/SGOT) 22U/L (0-50) Alanine Aminotransferase (ALT/SGPT) 11U/L (0-32) Alkaline Phosphatase 91U/L (25-165) Total Protein 5.2g/dL (6.4-8.4) Albumin 2.6g/dL (3.4-5.0) Vitamin B12 Level 271pg/mL (211-946) Folate 10.7ng/mL (>3.0) Procalcitonin 6.49ng/mL (0.00-0.08) Red Blood Count 2.60mil/mm3 (3.90-5.20) Mean Corpuscular Volume 89.2fL (81-100) Mean Corpuscular Hemoglobin 27.3pg (27.0-35.0) Mean Corpuscular Hemoglobin Concent 30.6% (32.0-37.0) Red Cell Distribution Width 15.0% (12.3-15.4) Platelet Count 185bil/L (150-400) Hemoglobin A1c 6.1% (4.8-5.6) Test 06/11/17 04:50 06/11/17 20:35 06/12/17 05:00 White Blood Count 9.3th/mm3 (3.8-10.1) Hemoglobin 8.5g/dL (12.0-15.6) Hematocrit 26.7% (35.0-46.0) Sodium Level 134mEq/L (134-144) Potassium Level 3.9mEq/L (3.5-5.2) Chloride Level 96mEq/L (97-108) Carbon Dioxide Level 24mmol/L (18-29) Blood Urea Nitrogen 10mg/dL (8-27) Creatinine 0.54mg/dL (0.57-1.00) Estimat Glomerular Filtration Rate 156mL/min (>59) Glucose Level 104mg/dL (60-99) Calcium Level 8.9mg/dL (8.5-10.1) Discharge Medications Discharge Medications Ascorbate Calcium (Vitamin C) 500 Mg Tablet 500 MG PO DAILY (Reported) Calcium Carbonate (Calcium) 600 Mg Tablet 600 MG PO DAILY (Reported) Cholecalciferol (Vitamin D3) (Vitamin D3) 2,000 Unit Capsule 2,000 UNIT PO DAILY (Reported) Ciprofloxacin (Ciprofloxacin) 500 Mg/5 Ml Debbie.mc.rec 500 MG PO BID Prescribed by: ROSEMARY REAL DO Folic Acid (Folic Acid) 1 Mg Tablet 1 MG PO QAM (Reported) Sennosides (Senna) 8.6 Mg Tablet 17.2 MG PO DAILY Prescribed by: ROSEMARY REAL DO Vit A/Vit C/Vit E/Zinc/Copper (Preservision Areds Tablet) 1 Each Tablet 2 EACH PO BID (Reported) As needed Acetaminophen/Diphenhydramine (Tylenol Pm Ex-Strength Caplet) 500 Mg-25 Mg Tablet 1 EACH PO HS PRN PRN Insomnia (Reported) Hydrocodone-Acetaminophen 5-325 mg (Hydrocodone-Acetaminophen 5-325 mg) 1 Each Tablet 1-2 TABLET PO Q4H PRN PRN For Pain Prescribed by: ROSEMARY REAL DO Lorazepam (Ativan) 0.5 Mg Tablet 0.5 MG PO Q8H PRN PRN For Nausea/Vomiting Prescribed by: ROSEMARY REAL DO Ondansetron (Ondansetron) 4 Mg Tablet 4 MG PO Q6H PRN PRN For Nausea/Vomiting ( Reported) Polyethylene Glycol 3350 (Miralax) 17 Gm Powd.pack 17 GM PO DAILY PRN PRN For Constipation Prescribed by: ROSEMARY REAL DO Followup Plan Follow-up plan F/U with the attending at the [facility] F/U with Dr. Kay on Wednesday06/15/17 for Chemo/Rad Patient Instructions Please take priobiotics/Yogurt to avoid diarrhea Patient can be on general diet. Generics may be substituted for meds Patient has no communicable diseases Patient has no oxygen requirements Patient has a ileostomy bag for urination Patient will require PT/OT: Assessment Patient found resting in bed. Consents to PT session but reports having overall a more difficult day than previous days. Patient is understandably emotional throughout session but reports understanding the importance of attempting to mobilize. Patient reports worsening left leg mobility and pain comparative to evaluation session but motivated to attempt mobility. Supine to sit with initial SBA requiring progression to near mod A to successfully bring her left leg out of bed. Patient able to tolerate sitting at EOB for ~ 8-10 minutes with SBA to mod I. Sit to stand transfer training x 2 with SBA to CGA and good UEX assistance to control ascent/descent. Patient reports worsening left knee and hip pain with sitting and WBing with guarded attempts at gait training ~ 10 ft before need to return to bed. Patient declined further attempts at mobility secondary to discomfort and was assisted back to bed with mod/max A and left resting with leg elevated and call button accessible. D/C recommendations continue to be SNF with daily PT/OT services. PT will continue to follow daily as patient is tolerant. Tolerance to Treatment Fair Current Discharge Recommendations Shelter Facility Discharge Mode of Transportaion [facility] Discharge Mode of Transportaion Comment Concern for sitting tolerance secondary to left leg symptoms. Patient has no wound care needs Time spent Greater than 30 minutes was spent in preparation of discharge with greater than 50% of that time dedicated to patient counseling and coordination of care. Rosemary Real DO Jun 12, 2017 12:56"
== END 2017-06-12 14:03 | DRG 690 ==
LOC: EDBD 16:49 → SED 16:49 → OSC 23:17
PROVIDERS: ADMIT Internal Medicine; ATTEND Family Medicine
PROC: 3E04305 Introduction of Other Antineoplastic into Central Vein, Percutaneous Approach (ICD-10-PCS; 2017-06-08)
PROC: 30233N1 Transfusion of Nonautologous Red Blood Cells into Peripheral Vein, Percutaneous Approach (ICD-10-PCS; principal; 2017-06-11)
DX: N39.0 Urinary tract infection, site not specified (principal); C79.51 Secondary malignant neoplasm of bone; C78.5 Secondary malignant neoplasm of large intestine and rectum; R64 Cachexia; D64.81 Anemia due to antineoplastic chemotherapy; E83.42 Hypomagnesemia; E87.6 Hypokalemia; R01.1 Cardiac murmur, unspecified; M85.88 Other specified disorders of bone density and structure, other site; Z93.2 Ileostomy status; R73.9 Hyperglycemia, unspecified; Z90.710 Acquired absence of both cervix and uterus; Z90.722 Acquired absence of ovaries, bilateral; Z68.22 Body mass index [BMI] 22.0-22.9, adult